=== PATIENT | female | born 1960 | race Caucasian/White ===

== ENCOUNTER 2018-03-17 11:07 | Emergency (ER) | payer MEDICARE, MEDICAID ==
[~2018-03-17] VITALS: Ht 160 cm; Wt 129.7 kg
[~2018-03-17 11:07] MED LIST: ABILIFY 5 MG TAB5 MG PO; ACTOS 45 MG45 M1 PO; ALBUTEROL2.5 MG/31 INH; ALBUTEROL2.5 MG/32; BACLOFEN20 MG PO; BACTROBAN CREAM30 G1; BENTYL20 MG PO; CLONAZEPAM 0.50.5 M1 PO; COUMADIN 3 MG TA3 M1 PO; COUMADIN 3 MG TA3 MG PO; COZAAR100 MG; CRESTOR10 MG PO; DIOVAN160 MG PO; EFFEXOR XR75 MG PO; FLAGYL500 MG PO; FLOVENT DISKUS50 MCG; FLUCONAZOLE 10100 MG PO; GLUCOPHAGE XR500 MG PO; HUMALOG100 UNIT/1 SUBQ; HYDROCHLOROTHIA25 M1 PO; HYDROCODON-ACE1 EAC8 PO; HYDROCODON-ACE1 EACH; IMODIUM A-1 MG/7.5 M; KEFLEX500 MG PO; LANTUSSOLASTAR SUBQ; LEVOTHYROXIN0.075 MG PO; LEVOTHYROXINE0.2 M1; LIPITOR20 MG; LOMOTIL TABLET1 EACH; LOPRESSOR 50 MG50 M1; LOPRESSOR25 PO; LOPRESSOR50 PO; MOBIC15 MG PO; MONISTAT 7 COM1 EAC1; MOTION RELIEF25 MG PO; MUCINEX600 MG; MUCINEX600 MG PO; NEURONTIN 300300 M1 PO; NICODERM CQ1 EAC1; NICOTINE TRANSD14 M1 TD; NYSTATIN1 EA10; ONGLYZA5 MG PO; OXYCODONE HCL 55 MG PO; OXYCODONE HCL5 MG PO; PAIN RELIEF500 MG PO; PRISTIQ100 MG PO; PROAIR HFA8.5 GM INH; RANITIDINE 150150 M1 PO; REGLAN 5 MG TAB5 MG; SINGULAIR 10 MG10 M1 PO; SKELAXIN 800 M800 M1 PO; SPIRIVA INH; SYNTHROID50 MCG PO; TYLENOL EX-STR500 M2; ZANTAC 150MG T150 MG PO; [UNRECOGNIZED DRUG - REMARK] DISSOLVE
[2018-03-17] MEDS ORDERED: BYDUREON B2 MG/0.85 INJECTION (11:36)
[2018-03-17] MEDS ORDERED: LEVEMIR SUBQ (11:37)
[2018-03-17] MEDS ORDERED: BUSPIRONE HCL10 MG PO (11:38)
[2018-03-17 11:55] LABS: ABSOLUTE BASOPHILS 0.1 thou/uL (0.0-0.2); ABSOLUTE EOSINOPHILS 0.5 thou/uL (0.0-0.7); ABSOLUTE MONOCYTES 0.7 thou/uL (0.0-1.2); ABSOLUTE NEUTROPHILS 9.5 thou/uL (1.6-8.1); BASOPHILS 1.1 %; EOSINOPHILS 3.8 %; HEMATOCRIT 51.9 % (37.0-47.0); HEMOGLOBIN 16.8 gm/dL (12.0-15.0); LYMPHOCYTES 15.7 %; MCH 29.4 pg (26.0-34.0); MCHC 32.3 g/dL (28.0-37.0); MCV 91.2 fL (80.0-100.0); MONOCYTES 5.4 %; NUCLEATED RBCS 0 /100WBC; PLATELET COUNT* 305 thou/uL (150-400); RBC 5.69 mil/uL (4.20-5.00); RDW-CV 14.7 % (10.5-14.5); WBC 12.8 thou/uL (4.0-11.0)
[2018-03-17 12:03] LABS: ANION GAP 9 mmol/L (7-16); BUN 27 mg/dL (7-18); CALCIUM 9.4 mg/dL (8.5-10.1); CHLORIDE 103 mmol/L (98-107); CO2 25 mmol/L (21-32); CREATININE 1.2 mg/dL (0.6-1.3); GLUCOSE 286 mg/dL (70-99); POTASSIUM 4.4 mmol/L (3.5-5.1); SODIUM 137 mmol/L (136-145)
[2018-03-17 12:14] LABS: ALBUMIN 3.3 g/dL (3.4-5.0); ALKALINE PHOSPHATASE 124 U/L (46-116); LIPASE 101 U/L (73-393); NT-PRO BRAIN NAT PEPTIDE 182 pg/mL (<300); SGOT 17 U/L (15-37); SGPT 30 U/L (30-65); TOTAL BILIRUBIN 0.4 mg/dL (<0.1-1.0); TOTAL PROTEIN 7.5 g/dL (6.4-8.2); TROPONIN-I LEVEL <0.06 ng/mL (<0.06)
[2018-03-17 12:21] LABS: HCO3 18.9 mmol/L (22.0-26.0); PO2 75.4 mmHg (75.0-100.0); pH 7.339 (7.340-7.450)
[2018-03-17 12:45] LABS: URINE BILIRUBIN NEGATIVE (Negative); URINE BLOOD NEGATIVE (Negative); URINE CLARITY CLEAR; URINE COLOR YELLOW; URINE GLUCOSE-RANDOM NEGATIVE (Negative); URINE KETONES NEGATIVE (Negative); URINE LEUKOCYTES-REFLEX 1+ (Negative); URINE NITRITE-REFLEX NEGATIVE (Negative); URINE PROTEIN 1+ (Negative); URINE SPECIFIC GRAVITY >= 1.030 (1.005-1.030); URINE UROBILINOGEN 0.2 E.U./dl (0.2-1.0)
[2018-03-17 12:59] LABS: MUCUS 4-6 Moderate strn/LPF (None Seen); SQUAMOUS >10 Many /LPF (0-3); URINE RBC 0-2 Rare /HPF (0-2); URINE WBC-REFLEX 6-15 Few /HPF (0-5)
[2018-03-17 13:00] LABS: CASTS None Seen /LPF (None Seen); CRYSTALS None Seen /LPF (None Seen)
[2018-03-17 14:30] VITALS: BP 148/92
--- NOTE | 2018-03-18 14:28 | EKG ---
[place] [address] ELECTROCARDIOGRAM REPORT Name: BARBARA PATRICIA Room: [facility]#: [id number] Admission: 03/17/18 Attend Phys: Discharge: 03/17/18 Date of : 56 Report #: [id number] THIS REPORT FOR: //name// [facility] ED Test Date: 2018-03-17 Test Time: 11:51:15 Pat Name: BARBARA PATRICIA Department: Room: Gender: F Cotton Expert: Michael GARCIA : 1960 Requested By: Benoit Ray Order Number: [id number] MD: Taco Yun Measurements Intervals [place] Rate: 77 P: 1 MD: 159 QRS: -2 QRSD: 85 T: 37 QT: 390 QTc: 442 Interpretive Statements nsr No further rhythm analysis attempted due to paced rhythm Probable left atrial enlargement Compared to ECG 10/03/2015 01:49:04 Sinus rhythm no longer present Left ventricular hypertrophy no longer present Electronically Signed On 03-18-2018 14:28:15 CDT by Taco Yun [email or web address] <ELECTRONICALLY SIGNED> By: Taco Yun MD, FACC 03/18/18 1428 1151 1151 Taco Yun MD, FAC /EPI
== END 2018-03-17 14:32 | disposition home or self-care (01) ==
LOC: M.ERS 11:07
PROVIDERS: Nurse Practitioner Family
DX: I95.1 Orthostatic hypotension (principal); E11.65 Type 2 diabetes mellitus with hyperglycemia; J44.9 Chronic obstructive pulmonary disease, unspecified; G47.30 Sleep apnea, unspecified; E03.9 Hypothyroidism, unspecified; F17.210 Nicotine dependence, cigarettes, uncomplicated; Z90.89 Acquired absence of other organs; Z90.49 Acquired absence of other specified parts of digestive tract; Z88.1 Allergy status to other antibiotic agents; Z88.0 Allergy status to penicillin; Z88.2 Allergy status to sulfonamides; Z88.8 Allergy status to other drugs, medicaments and biological substances; Z79.4 Long term (current) use of insulin

== ENCOUNTER → 2019-01-27 | Outpatient (CLI) | payer MEDICARE, MEDICAID ==
[~2019-01-27] MED LIST changes: +BUSPIRONE HCL10 MG PO; +BYDUREON B2 MG/0.85 INJECTION; +LEVEMIR SUBQ
== END ==
LOC: M.MRI 12-18 13:30
DX: R42 Dizziness and giddiness (principal); R26.9 Unspecified abnormalities of gait and mobility; G45.9 Transient cerebral ischemic attack, unspecified; G62.9 Polyneuropathy, unspecified; Z88.8 Allergy status to other drugs, medicaments and biological substances; Z88.1 Allergy status to other antibiotic agents; Z88.2 Allergy status to sulfonamides; Z88.0 Allergy status to penicillin

== ENCOUNTER 2019-06-06 17:37 | Inpatient (IN) | payer MEDICARE, MEDICAID ==
[~2019-06-06] VITALS: Ht 157.5 cm; Wt 107.0 kg
[~2019-06-06 17:37] MED LIST changes: -GLUCOPHAGE XR500 MG PO; +METFORMIN HCL500 MG PO
[2019-06-06 17:42] VITALS: BP 115/62
[2019-06-06 18:30] LABS: PCO2 VENOUS 26.3 mmHg (41.0-51.0); PO2 VENOUS 67.1 mmHg (35.0-45.0)
[2019-06-06 18:31] LABS: ABSOLUTE BASOPHILS 0.1 thou/uL (0.0-0.2); ABSOLUTE LYMPHOCYTES 2.2 thou/uL (0.8-5.3); ABSOLUTE MONOCYTES 0.8 thou/uL (0.0-1.2); ABSOLUTE NEUTROPHILS 6.8 thou/uL (1.6-8.1); BASOPHILS 1.3 %; EOSINOPHILS 0.3 %; HEMATOCRIT 52.3 % (37.0-47.0); HEMOGLOBIN 17.7 gm/dL (12.0-15.0); LYMPHOCYTES 22.3 %; MCH 31.3 pg (26.0-34.0); MCHC 33.9 g/dL (28.0-37.0); MCV 92.3 fL (80.0-100.0); MONOCYTES 8.1 %; MPV 8.4 fl. (7.2-11.1); NUCLEATED RBCS 0 /100WBC; PLATELET COUNT* 243 thou/uL (150-400); RBC 5.66 mil/uL (4.20-5.00)
[2019-06-06 18:54] LABS: MAGNESIUM 1.6 mg/dL (1.8-2.4); TOTAL BILIRUBIN 0.7 mg/dL (<0.1-1.0); TOTAL PROTEIN 6.2 g/dL (6.4-8.2); TROPONIN-I LEVEL 0.18 ng/mL (<0.06)
[2019-06-06 19:16] LABS: URINE BLOOD TRACE (Negative); URINE CLARITY CLEAR; URINE COLOR YELLOW; URINE GLUCOSE-RANDOM 2+ (Negative); URINE KETONES 1+ (Negative); URINE LEUKOCYTES-REFLEX NEGATIVE (Negative); URINE NITRITE-REFLEX NEGATIVE (Negative); URINE PROTEIN 2+ (Negative); URINE SPECIFIC GRAVITY 1.015 (1.005-1.030); URINE UROBILINOGEN 0.2 E.U./dl (0.2-1.0)
[2019-06-06 19:17] LABS: ICTOTEST (BILI CONFIRMATORY) Negative (Negative); URINE BILIRUBIN 1+ (Negative)
[2019-06-06 19:18] LABS: APTT 26.4 Seconds (25.0-31.3); INR 1.1; PROTIME 11.2 Seconds (9.20-11.50)
[2019-06-06 19:28] LABS: URINE RBC 0-2 Rare /HPF (0-2); URINE WBC-REFLEX 0-5 Rare /HPF (0-5)
[2019-06-06 19:29] LABS: BACTERIA-REFLEX 1-9 Few /HPF (None Seen)
[2019-06-06 19:30] LABS: AMORPHOUS URATES Few /LPF (None Seen); CRYSTALS None Seen /LPF (None Seen); HYALINE CASTS 0-3 Few /LPF (None Seen); MUCUS 0-3 Light strn/LPF (None Seen); SQUAMOUS >10 Many /LPF (0-3)
[2019-06-06 20:30] VITALS: BP 164/83
[2019-06-06 20:44] VITALS: BP 137/68
[2019-06-06 21:00] VITALS: BP 146/84
[2019-06-06 22:00] VITALS: BP 158/91
[2019-06-06 23:00] VITALS: BP 164/89
[2019-06-07] VITALS (24 sets, daily range): BP systolic 134–186; BP diastolic 69–102
--- NOTE | 2019-06-07 04:33 | NUR ---
ASUMED CARE AT 2035H,ON NC AT 2LPM AND NO CHEST PAIN NOTED.PT FORGETFUL SOMETIMES AND NO WEAKNESS OR FACIAL DROPING NOTED.ON CARDIZEM DRIP AT 10MG/HR AND CONVERTED TO NSR.TROPONIN WAS ELEVATED AND INFORM ROUGE SIFTER WITH ORDERS CARRIED OUT.HEPARIN DRIP STARTED.NO BLEEDING NOTED.CONTINUE MONITORING AND TOWARDS GOAL.
[2019-06-07 08:57] LABS: ALBUMIN 2.5 g/dL (3.4-5.0); CALCIUM 7.6 mg/dL (8.5-10.1); CREATININE 1.2 mg/dL (0.6-1.3); POTASSIUM 3.3 mmol/L (3.5-5.1); TOTAL BILIRUBIN 0.4 mg/dL (<0.1-1.0); TOTAL PROTEIN 5.2 g/dL (6.4-8.2)
[2019-06-07 10:05] LABS: CALCIUM 7.7 mg/dL (8.5-10.1); CREATININE 0.8 mg/dL (0.6-1.3); MAGNESIUM 1.5 mg/dL (1.8-2.4); POTASSIUM 3.3 mmol/L (3.5-5.1)
--- NOTE | 2019-06-07 10:14 | CON ---
[address] [address] CONSULTATION Name: BARBARA PATRICIA Room: [address] ADM IN .R.#: [id number] Admission: 06/06/19 Attend Phys: Matthew Alcocer MD Discharge: Date of : 56 Report #: [id number] THIS REPORT FOR: //name// CC: Matthew Alcocer [facility] physician/PCP Rajiv Hamilton DO DATE OF SERVICE: 06/07/2019 INDICATION: Atrial fibrillation with rapid ventricular response rate and elevated troponin. HISTORY OF PRESENT ILLNESS: The patient is a 58-year-old white female who was admitted to the hospital with confusion, abdominal discomfort, diabetes and disorientation. The patient denies any palpitations. She denies any chest pain. She is not having shortness of breath. Cardiac risk factors include diabetes and hypertension. She likely has hyperlipidemia as well. She denies any past cardiac history. FAMILY HISTORY: Fairly unremarkable. She does apparently have factor V Leiden and had been on anticoagulant. PAST MEDICAL HISTORY: 1. Hypertension. 2. Diabetes. 3. Insulin requiring diabetes type 2. 4. Chronic obstructive pulmonary disease. 5. Factor V Leiden. 6. Sleep apnea. 7. Spinal meningitis in 2001. 8. Hypothyroidism. PAST SURGICAL HISTORY: 1. Tonsillectomy. 2. Cholecystectomy. 3. Left knee surgery. 4. Carpal tunnel bilaterally on the left x 2. 5. Left elbow surgery. 6. Lap band surgery. 7. Right knee surgery. FAMILY HISTORY: Noncontributory except the patient's mother did have a blood clot which she with. SOCIAL HISTORY: The patient smokes daily two packs of cigarettes. [place] [address] CONSULTATION Name: BELEMKELTON Room: [address] IN ..#: [id number] Admission: 06/06/19 Attend Phys: Matthew Alcocer MD Discharge: Date of : 56 Report #: [id number] ALLERGIES: CLARITHROMYCIN, LISINOPRIL, PENICILLIN, PREGABALIN, SULFA, TAPE, PSEUDOEPHEDRINE. CURRENT MEDICATIONS: Bydureon BCise 2 mg injection weekly, Levemir M 45 units daily, buspirone 10 mg b.i.d., hydrochlorothiazide 25 mg a half a tablet daily, Singulair 10 mg at bedtime, clonazepam 0.5 mg b.i.d., Zantac 150 mg daily, Neurontin 300 mg 2 tablets t.i.d., Effexor XR 150 mg daily, warfarin as directed per INR, metformin 1000 mg b.i.d., Synthroid 0.075 mg daily, Abilify 5 mg at bedtime, metoprolol tartrate 50 mg b.i.d. PHYSICAL EXAMINATION: VITAL SIGNS: Blood pressure 175/85, pulse 100 and regular. GENERAL: This is a pleasant lady in no distress. Mood and affect appropriate. HEENT: Head is normocephalic, atraumatic. Extraocular muscles intact. Mucous membranes are moist. NECK: Shows no jugular venous distention. CHEST: Reveals clear lung scott. CARDIOVASCULAR: Reveals a regular rhythm with normal S1 and S2. I do not appreciate gallop or murmur. ABDOMEN: Reveals normal bowel sounds. The abdomen is soft and nontender. EXTREMITIES: Shows no edema. Peripheral pulses are 2+ and easily palpable. SKIN: Warm and dry. LABORATORY DATA: Sodium 142, potassium 3.3, chloride 108, bicarbonate 20, BUN 14, creatinine 1.2, serum glucose 242, AST 28, lipase 101, total bilirubin 0.4, calcium 7.6, phosphorus 4.2, magnesium 1.6, alkaline phosphatase 91, ALT 22, total protein 5.2, albumin 2.5, EGFR 46. Ammonia level 23. Lactic acid 1.4. Total CPK 54, CPK-MB 1.1. Troponin presently 4.20. Broad NT-proBNP 182. INR 1.1. White blood cell count 10.0, hemoglobin 17.7, platelet count 243,000. A 12-lead EKG in the Emergency Room shows atrial fibrillation with rapid ventricular response rate. Telemetry currently shows sinus rhythm. Chest x-ray was unremarkable. IMPRESSION AND RECOMMENDATIONS: 1. Elevated troponin, likely due to type 2 myocardial infarction due to atrial fibrillation with rapid ventricular response rate. We will obtain stress testing to further evaluate. Further testing will be pending the results of stress test. I would also like to obtain an echocardiogram to evaluate underlying cardiac structure and function. We will also start Eliquis 5 mg b.i.d., discontinue warfarin. 2. Atrial fibrillation with rapid ventricular response rate, now in sinus rhythm. We will resume the patient's home medications. Increasing beta laurel for blood pressure and heart rate. Obtaining 2-dimensional echocardiogram. [address] [address] CONSULTATION Name: BARBARA PATRICIA Room: [facility] IN M.R.#: [id number] Admission: 06/06/19 Attend Phys: Matthew Alcocer MD Discharge: Date of : 56 Report #: [id number] Recommend lifelong anticoagulation. 3. Hypertension. Blood pressure moderately elevated. We will make adjustments to her home medications in an effort to improve blood pressure. 4. Diabetes per primary physician. 5. Probable hyperlipidemia. We will check fasting lipid profile and treat accordingly. <ELECTRONICALLY SIGNED> By: Boyd Rodriguez MD, [facility] 06/07/19 1014 0946 1010Micaga Rodriguez MD, [facility] /nt
--- NOTE | 2019-06-07 18:26 | NUR ---
this freelance writer assumed care of pt after receiving shift report at 0700. pt progressed towards goals today. titrated off the heparin and cardizem drip. rhythm coverted to NS after a-fib rvr. pt is up to bed side commode with assist episodes of incontience. requesting soft food because cant chew well with few top teeth. daughter in room today. pt on phone with family members through day. echo scheduled for tomorrow
[2019-06-08] VITALS (10 sets, daily range): BP systolic 144–169; BP diastolic 66–87
[2019-06-08 02:05] LABS: GLYCOHEMOGLOBIN (HGB A1C) 11.6 % (4.8-5.6)
[2019-06-08 04:08] LABS: ABSOLUTE BASOPHILS 0.1 thou/uL (0.0-0.2); ABSOLUTE EOSINOPHILS 0.2 thou/uL (0.0-0.7); ABSOLUTE LYMPHOCYTES 2.8 thou/uL (0.8-5.3); ABSOLUTE MONOCYTES 0.5 thou/uL (0.0-1.2); ABSOLUTE NEUTROPHILS 4.6 thou/uL (1.6-8.1); BASOPHILS 1.4 %; EOSINOPHILS 2.1 %; HEMATOCRIT 43.8 % (37.0-47.0); LYMPHOCYTES 33.7 %; MCH 30.7 pg (26.0-34.0); MCHC 33.5 g/dL (28.0-37.0); MCV 91.8 fL (80.0-100.0); MONOCYTES 6.6 %; MPV 7.7 fl. (7.2-11.1); NUCLEATED RBCS 0 /100WBC; PLATELET COUNT* 226 thou/uL (150-400); POLYS 56.2 %; RBC 4.77 mil/uL (4.20-5.00); RDW-CV 14.1 % (10.5-14.5); WBC 8.2 thou/uL (4.0-11.0)
[2019-06-08 04:21] LABS: ALBUMIN 2.4 g/dL (3.4-5.0); CALCIUM 7.4 mg/dL (8.5-10.1); CREATININE 0.6 mg/dL (0.6-1.3); POTASSIUM 3.5 mmol/L (3.5-5.1); TOTAL BILIRUBIN 0.4 mg/dL (<0.1-1.0); TOTAL PROTEIN 5.7 g/dL (6.4-8.2)
[2019-06-08 04:25] LABS: HEMOGLOBIN 14.7 gm/dL (12.0-15.0)
[2019-06-08 04:28] LABS: PREALBUMIN 15.7 mg/dL (18.0-35.7)
[2019-06-08 05:02] LABS: CHOLESTEROL 103 mg/dL (<200); HDL CHOLESTEROL 25 mg/dL (>40); LDL CHOLESTEROL 45 mg/dL (<100); TC:HDL 4.1 Ratio (Not establshd); TRIGLYCERIDE 165 mg/dL (<150); VLDL 33 mg/dL (<40)
[2019-06-08 05:09] LABS: SERUM ASSESSMENT Clear
--- NOTE | 2019-06-08 05:12 | NUR ---
PT. PROGRESSING TOWARDS GOALS. UP AD NATALYA. ROOM AIR. MULTIPLE EPISODES OF DIARRHEA, CDIFF NEGATIVE. SINUS RHYTHM. ECHO AND STRESS TEST TO BE DONE THIS A.M. ROOM AIR. WILL CONTINUE TO MONITOR.
--- NOTE | 2019-06-08 10:51 | NUR ---
ASSUMED PT CARE 0730. PT A/O X'S 4. DENIES CHEST PAIN. PT NPO FOR STRESS TEST. SYSTOLIC BP 170'S. PT TO HAVE METOPROLOL BUT CANNOT DUE TO STRESS TEST. DR NOTIFIED. RECEIED ORDER FOR HYDROCHLORITHIAZIDE AND IF DOES NOT BRING BP DOWN RECEIVED ORDERS FOR ONE TIME HYDRLAZINE.
--- NOTE | 2019-06-08 11:12 | EKG ---
[place] [address] ELECTROCARDIOGRAM REPORT Name: PATRICIABARBARA Room: [address] ADM IN .R.#: [id number] Admission: 06/06/19 Attend Phys: Matthew Alcocer MD Discharge: Date of : 56 Report #: [id number] THIS REPORT FOR: //name// [facility] ED Test Date: 2019-06-06 Test Time: 17:48:21 Pat Name: BARBARA PATRICIA Department: Room: [facility] Gender: F Conveyor Attendant: D : 1960 Requested By: Pipe Rodriguez Order Number: [id number] MD: Rigo Nunez Measurements Intervals [place] Rate: 146 P: CA: QRS: 6 QRSD: 88 T: -33 QT: 340 QTc: 530 Interpretive Statements Atrial flutter with predominant 2:1 AV block Repol abnrm suggests ischemia, diffuse leads Prolonged QT interval Compared to ECG 03/17/2018 11:51:15 atrial flutter noted Electronically Signed On 06-08-2019 11:12:06 CDT by Rigo Nunez [email or web address] <ELECTRONICALLY SIGNED> By: Rigo Nunez MD, FAC 06/08/19 1112 1748 1748 Rigo Nunez MD, [facility] /EPI
--- NOTE | 2019-06-08 11:16 | NUR ---
Nutrition: Pt admit with altered mental status. No wt hx available, BMI >40. Pt currently NPO for stress test. BG variable: 383-138. Meds reviewed. Pt with episodes of diarrhea, c-diff negative. Nutrition risk unclear at this time; f/u on po intake, wt, etc. in 3-4 days.
--- NOTE | 2019-06-08 11:17 | NUR ---
ICU rounds and assessment: Pt tele status. Pt nurse explained pt to have stress test and MRI today. Pt lives at home alone with family support; SW tried to contact pt dtr in law Dominguez who did not answer. Pt has hx of [facility] and hx of [facility]. Pt has DME. SW/CM to continue to follow to assist with safe dc planning.
--- NOTE | 2019-06-08 14:18 | 2DMMODE ---
[place] [address] 2 D/M-MODE ECHOCARDIOGRAM Name: BARBARA PATRICIA Room: [address] IN [facility]#: [id number] Admission: 06/06/19 Attend Phys: Matthew Alcocer, Discharge: Date of : 56 Date of Service: 06/08/19 1418 Report #: [id number] THIS REPORT FOR: //name// APPROVED REPORT Study performed: 06/08/2019 10:11:18 EXAM: Comprehensive 2D, Doppler, and color-flow Echocardiogram Patient Location: In-Patient Room #: 002 Status: routine BSA: 2.05 HR: 73 bpm BP: 181/99 mmHg Rhythm: NSR Other Information Study Quality: Good Indications Atrial Fibrillation Elevated Troponin 2D Dimensions IVSd: 11.31 (7-11mm) LVOT Diam: 18.88 (18-24mm) LVDd: 41.11 mm PWd: 11.79 (7-11mm) Ascending Ao: 38.25 (22-36mm) LVDs: 22.96 (25-40mm) Aortic Root: 31.57 mm Volumes Left Atrial Volume (Systole) LA ESV Index: 38.30 mL/m2 Aortic Valve AoV Peak Kain.: 1.53 m/s AO Peak Gr.: 9.41 mmHg LVOT Max P.65 mmHg AO Mean Gr.: 4.72 mmHg LVOT Mean P.53 mmHg LVOT Max V: 1.19 m/s AO V2 VTI: 32.13 cm LVOT Mean V: 0.72 m/s CHI (VTI): 2.59 cm2 LVOT V1 VTI: 29.69 cm Mitral Valve E/A Ratio: 0.82 MV Decel. Time: 265.21 [place] [address] 2 D/M-MODE ECHOCARDIOGRAM Name: ABRBARA PATRICIA Room: [address] IN .R.#: [id number] Admission: 06/06/19 Attend Phys: Matthew Alcocer, Discharge: Date of : 56 Date of Service: 06/08/19 1418 Report #: [id number] MV E Max Kain.: 0.92 m/s MV PHT: 76.91 ms MVA (PHT): 2.86 cm2 TDI E/Lateral E': 10.22 E/Medial E': 10.22 Medial E' Kain.: 0.09 m/s Lateral E' Kain.: 0.09 m/s Pulmonary Valve PV Peak Kain.: 1.03 m/s PV Peak Gr.: 4.22 mmHg Tricuspid Valve RAP Estimate: 5.00 mmHg TR Peak Gr.: 21.68 mmHg RVSP: 26.00 mmHg PA Pressure: 26.00 mmHg Left Ventricle The left ventricle is normal size. There is normal LV segmental wall motion. Mild concentric left ventricular hypertrophy. Left ventricular systolic function is normal. The left ventricular ejection fraction is within the normal range. LVEF is 65-70%. Grade I - abnormal relaxation pattern. Right Ventricle The right ventricle is normal size. The right ventricular systolic function is normal. Atria Left atrium is mildly dilated. The right atrium size is normal. Aortic Valve Mild aortic valve sclerosis. No aortic regurgitation is present. There is no aortic valvular stenosis. Mitral Valve There is mitral annular calcification. Mild mitral regurgitation. No evidence of mitral valve stenosis. Tricuspid Valve The tricuspid valve is normal in structure. Trace tricuspid regurgitation. No pulmonary hypertension. Pulmonic Valve The pulmonary valve is normal in structure. [place] [address] 2 D/M-MODE ECHOCARDIOGRAM Name: BARBARA PATRICIA Room: [address] IN [facility]#: [id number] Admission: 06/06/19 Attend Phys: Matthew Alcocer, Discharge: Date of : 56 Date of Service: 06/08/19 1418 Report #: [id number] valvular regurgitation. Great Vessels Aortic root is mildly dilated. IVC is normal in size and collapses >50% with inspiration. Pericardium There is no pericardial effusion. <Conclusion> Mild concentric left ventricular hypertrophy. LVEF is 65-70%. Left atrium is mildly dilated. Mild aortic valve sclerosis. <ELECTRONICALLY SIGNED> By: Rigo Nunez MD, FACC 06/08/19 1418 17 141 Rigo Nunez MD, FACC /INF
--- NOTE | 2019-06-08 18:30 | NUR ---
NO CHEST PAIN THIS SHIFT. A/O X'S 4 THIS SHIFT. AFEBRILE. METORPORLOL HELD PRIOR TO STRESS TEST AND ADMININSTERED AFTER TEST. SOFT FOODS OFFERED TO PT PT REPORTS HAVING TEETH PULLED. PT TOLERATING SOFT FOODS.
--- NOTE | 2019-06-08 21:46 | NUR ---
REPORT GIVEN TO TATYANA JOYCE. PT. TO TRANSFER TO ROOM 210. PT. TRANSFERRED VIA WHEELCHAIR AT THIS TIME, ALL PERSONAL BELONGINGS SENT WITH PT.
[2019-06-09] VITALS: BP 139/85
[2019-06-09 04:00] VITALS: BP 136/58
[2019-06-09 04:43] LABS: ABSOLUTE BASOPHILS 0.1 thou/uL (0.0-0.2); ABSOLUTE EOSINOPHILS 0.2 thou/uL (0.0-0.7); ABSOLUTE LYMPHOCYTES 2.6 thou/uL (0.8-5.3); ABSOLUTE MONOCYTES 0.6 thou/uL (0.0-1.2); ABSOLUTE NEUTROPHILS 4.9 thou/uL (1.6-8.1); BASOPHILS 0.8 %; EOSINOPHILS 2.2 %; HEMATOCRIT 42.2 % (37.0-47.0); HEMOGLOBIN 14.2 gm/dL (12.0-15.0); MCH 30.9 pg (26.0-34.0); MCHC 33.6 g/dL (28.0-37.0); MONOCYTES 7.3 %; MPV 7.8 fl. (7.2-11.1); NUCLEATED RBCS 0 /100WBC; PLATELET COUNT* 226 thou/uL (150-400); POLYS 58.7 %; RBC 4.58 mil/uL (4.20-5.00); RDW-CV 13.5 % (10.5-14.5); WBC 8.4 thou/uL (4.0-11.0)
[2019-06-09 04:49] LABS: CALCIUM 7.8 mg/dL (8.5-10.1); CREATININE 0.6 mg/dL (0.6-1.3); POTASSIUM 3.1 mmol/L (3.5-5.1)
--- NOTE | 2019-06-09 05:35 | NUR ---
TRANSFERRED TO 210 FROM ICU AT 2150, SEE ASSESSMENT. VSS. PT DENIES PAIN AND SOA. AMBULATES WITH STEADY GAIT. ORIENTED TO ROOM/CALL LIGHT. SNACK PROVIDED. CALL LIGHT WITHIN REACH.
[2019-06-09 08:00] VITALS: BP 159/66
[2019-06-09 12:00] VITALS: BP 132/70
--- NOTE | 2019-06-09 12:05 | NUR ---
Spoke with Pt, goal is home at dc, no needs anticipated.
[2019-06-09] MEDS ORDERED: ELIQUIS5 MG PO (12:57)
[2019-06-09] MEDS ORDERED: LOPRESSOR100 M1 PO (12:57)
--- NOTE | 2019-06-09 13:11 | NUR ---
ASSUMED PT CARE AT 0800, AOX4, UP AD NATALYA, O2 SAT 90'S RA. TRACING SINUS ARABELLA ON TELE. PT DENIES PAIN. PT FOR DISCHARGE. CARDIOLOGY OK TO D/C. NUC MED WANTS TO DO SECOND PART OF STRESS TEST TOMORROW OUTPATIENT. VSS, AM ASSESSMENT CHARTED, MEDS GIVEN PER MAR CALL LIGHT WITHIN REACH. WILL CONTINUE TO MONITOR.
[2019-06-09 13:40] VITALS: BP 132/70
[2019-06-09 14:09] LABS: ANA INTERPRETATION Negative (())
--- NOTE | 2019-06-09 15:32 | NUR ---
DISCHARGE PLAN DISCUSSED WITH THE PT. MEDICATION PACKET GIVEN. SCRIPT CALLED TO PHARMACY. IV, TELE REMOVED. REMINDED TO FOLLOW UP WITH PCP, CARDIOLOGY. LEFT THE UNIT VIA WHEELCHAIR 1320.
--- NOTE | 2019-06-12 09:32 | EEG ---
[address] [address] EEG STUDY REPORT Name: BELEMKELTON Room: [address] IN M.R.#: [id number] Admission: 06/06/19 Attend Phys: Matthew Alcocer MD Discharge: 06/09/19 Date of : 56 Report #: [id number] THIS REPORT FOR: //name// CC: Matthew Alcocer FAM physician/PCP DATE OF SERVICE: 06/08/2019 This patient is being evaluated for altered mental status. EEG was done by placing the electrode by standard 10-20 system of electrode placement. Both referential and sequential montages were used for recording. Background activity in this patient's EEG is about 9 Hz and 30 microvolts. It is a symmetrical activity. It is intermixed with theta range slowing on both sides. Photic stimulation was unremarkable. Throughout the record, no active epileptiform activity was noticed. IMPRESSION: This patient's EEG is intermixed with theta range slowing on both sides. That is a nonspecific abnormality which can occur with encephalopathy, dementia and effect of psychotropic medication. Clinical correlation is recommended. <ELECTRONICALLY SIGNED> By: Segundo Ruiz MD 06/12/19 0932 1733 1903Pcuauhtemoc Ruiz MD /nt
--- NOTE | 2019-07-01 17:04 | CARDNUC ---
[place] [address] CARDIAC NUCLEAR IMAGING REPORT Name: PATRICIAKELTON Room: [address]#: [id number] Admission: 06/06/19 Attend Phys: Matthew Alcocer, Discharge: 06/09/19 Date of : 56 Date of Service: 07/01/19 1704 Report #: [id number] THIS REPORT FOR: //name// ADDENDUM APPROVED REPORT Study performed: 06/07/2019 09:49:00 Indication: Troponin elevation, Altered Mental Status. Patient Location: In-Patient Room #: ICU 2 Stress Tech: Sue Jimenez Stress Nurse: Nimo Austin RN Ht: 5 ft 2 in Wt: 236 lbs BSA: 2.05 m2 BMI: 43.15 Medical History Medical History: COPD, Altered Mental Status, Elevated Troponins, Hyperlipidemia, HTN, Diabetes, Hx of Blood clots. Medications: Crestor, Insulin, Eliquis, Metoprolol, ASA 81 Mg, HCTZ, Hydralazine, Home Meds include Warfarin NA 3 mg. Allergies: See EMAR, Multiple Drug Allergies. Cardiac Risk Factors: Age, Current Smoker, DM, FHX of CAD, HTN, Hyperlipidemia. Previous Cardiac Procedures: None Pretest Chest Pain Characteristics: No chest pain Exercise History: Indeterminate Physical Disabilities: Generalized weakness, 1x assist transfers. Meds Held (24 hrs): Metoprolol Pharmacologic Stress Pharmacologic stress test was performed by injecting Regadenoson 0.4 mg IV push over 10-15 seconds immediately followed by the intravenous injection of 30.2 mCi of Tc-99m Sestamibi. Time of stress injection: 12:00 Administration Route: IV Gated Stress SPECT was performed 45 minutes after stress injection. The images were gated to evaluate regional wall motion and calculate left ventricular ejection fraction. Stress Test Details Stress Test: Pharmacologic stress testing performed using 0.4 mg of regadenoson per 5 mL given IV over [address] [place] [address] CARDIAC NUCLEAR IMAGING REPORT Name: BARBARA PATRICIA ANN Room: [address]#: [id number] Admission: 06/06/19 Attend Phys: Matthew Alcocer, Discharge: 06/09/19 Date of : 56 Date of Service: 07/01/19 1704 Report #: [id number] Reason for pharmacologic stress test: Generalized weakness, 1x assist in transfers.. HR Max Heart Rate (APMHR): 160 bpm Resting HR: 62 bpm Target HR (85% APMHR): 136 bpm Max HR Achieved: 98 bpm % of APMHR: 61 Recovery HR: 92 bpm BP Resting BP: 138/75 mmHg Max BP: 163/73 mmHg Recovery BP: 169/72 mmHg ECG Resting ECG: Sinus Rhythm Stress ECG: Sinus Rhythm ST Change: None Arrhythmia: None Recovery ECG: Sinus Rhythm Recovery ST Change: None Recovery Arrhythmia: None Clinical Reason for Termination: Completed protocol Stress Symptoms: Dyspnea Exercise duration: 00 min 00 sec Exercise capacity: 1.00 METs The patient had no significant cardiac symptoms with Lexiscan infusion. Nurse Comments A 58 year old female presented from ICU for sitting Lexiscan r/t recent AMS, increased troponins, weakness and fatigue. Patient tolerated test well. Recovery unremarkable with PO caffeine, effective. Patient escorted via wheelchair by staff to Nuclear Medicine for images. Patient was stable with no complaints at that time. Stress ECG Conclusion The baseline 12-lead EKG shows sinus rhythm without significant ST or T wave abnormality. EKGs obtained during and post Lexiscan infusion show sinus rhythm with no significant ST or T wave changes when compared to baseline. There were no stress-induced [place] [address] CARDIAC NUCLEAR IMAGING REPORT Name: PATIRCIAKELTON Room: [address] IN ..#: [id number] Admission: 06/06/19 Attend Phys: Matthew Alcocer, Discharge: 06/09/19 Date of : 56 Date of Service: 07/01/19 1704 Report #: [id number] Study: uninterpretable Study Data At rest, the left ventricular ejection fraction was he%.. Post stress, the left ventricular ejection was 74%.. TID = 1.00. Perfusion There is a modest amount intensity defect in the basal to mid inferior wall. Mild bleeding in the mid to distal anterior wall is consistent with breast attenuation artifact.No other significant fixed or reversible defects are identified. Wall Motion There is mild hypokinesis of the mid inferior wall. Global LV systolic function is well-preserved. Nuclear Conclusion ECG Findings: negative for ischemia Clinical Findings: negative for ischemia Nuclear Findings: positive for ischemia Exercise Capacity: not assessed Left Ventricular Function: preserved Risk Study: moderate Perfusion images suggest ischemia of the mid to basilar wall with preserved left ventricular systolic function is a moderate risk study. <Conclusion> The baseline 12-lead EKG shows sinus rhythm without significant ST or T wave abnormality. EKGs obtained during and post Lexiscan infusion show sinus rhythm with no significant ST or T wave changes when compared to baseline. There were no stress-induced arrhythmias. <ELECTRONICALLY SIGNED> By: Boyd Rodriguez MD, FACC 07/01/194 03 03 Boyd Rodriguez MD, FACC /INF
== END 2019-06-09 15:23 | disposition home or self-care (01) | DRG 280 ==
LOC: M.ERS 17:37 → M.TBA-ER 19:05 → M.ICU 19:05 → M.2W 06-08 21:45
PROVIDERS: Emergency Medicine Emergency Medical Services; Internal Medicine Cardiovascular Disease; Psychiatry & Neurology Neurology; ADMIT Internal Medicine
DX: I21.A1 Myocardial infarction type 2 (principal); G92 Toxic encephalopathy; E87.2 Acidosis; J96.10 Chronic respiratory failure, unspecified whether with hypoxia or hypercapnia; I48.92 Unspecified atrial flutter; J44.9 Chronic obstructive pulmonary disease, unspecified; I10 Essential (primary) hypertension; E03.9 Hypothyroidism, unspecified; G47.30 Sleep apnea, unspecified; F17.210 Nicotine dependence, cigarettes, uncomplicated; I48.91 Unspecified atrial fibrillation; E11.65 Type 2 diabetes mellitus with hyperglycemia; E78.5 Hyperlipidemia, unspecified; Z88.0 Allergy status to penicillin; Z88.2 Allergy status to sulfonamides; Z88.8 Allergy status to other drugs, medicaments and biological substances; Z88.1 Allergy status to other antibiotic agents; Z91.040 Latex allergy status; Z79.4 Long term (current) use of insulin; Z79.84 Long term (current) use of oral hypoglycemic drugs; Z79.899 Other long term (current) drug therapy; Z90.49 Acquired absence of other specified parts of digestive tract

== ENCOUNTER 2019-07-16 10:05 | Observation (INO) | payer MEDICARE, MEDICAID ==
[~2019-07-16] VITALS: Ht 160 cm; Wt 117.5 kg
--- NOTE | ~2019-07-16 | H ---
[address] [address] HISTORY AND PHYSICAL Name: BARBARA PATRICIA Room: [address] Radha Child#: [id number] Admission: 07/16/19 Attend Phys: Boyd Rodriguez MD Discharge: 07/17/19 Date of : 56 Report #: [id number] THIS REPORT FOR: //name// Please refer to the History and Physical performed in the physician's office. By: 0649Medical Records Staff PATEL /PAM
[~2019-07-16 10:05] MED LIST changes: +ELIQUIS5 MG PO; +LOPRESSOR100 M1 PO
[2019-07-16 12:01] LABS: HEMATOCRIT 41.8 % (37.0-47.0); HEMOGLOBIN 14.3 gm/dL (12.0-15.0); MCH 31.6 pg (26.0-34.0); MCHC 34.1 g/dL (28.0-37.0); MCV 92.5 fL (80.0-100.0); MPV 7.8 fl. (7.2-11.1); RBC 4.52 mil/uL (4.20-5.00); RDW-CV 14.2 % (10.5-14.5); WBC 9.4 thou/uL (4.0-11.0)
[2019-07-16 12:10] LABS: ANION GAP 9 mmol/L (7-16); BUN 19 mg/dL (7-18); CALCIUM 8.5 mg/dL (8.5-10.1); CHLORIDE 108 mmol/L (98-107); CO2 24 mmol/L (21-32); CREATININE 0.9 mg/dL (0.6-1.3); GLUCOSE 322 mg/dL (70-99); POTASSIUM 4.2 mmol/L (3.5-5.1); SODIUM 141 mmol/L (136-145)
[2019-07-16 12:11] LABS: APTT 25.1 Seconds (25.0-31.3)
[2019-07-16 12:16] LABS: ALBUMIN 2.7 g/dL (3.4-5.0); ALKALINE PHOSPHATASE 97 U/L (46-116); CHOLESTEROL 98 mg/dL (<200); HDL CHOLESTEROL 29 mg/dL (>40); LDL CHOLESTEROL 41 mg/dL (<100); SERUM ASSESSMENT Clear; SGOT 31 U/L (15-37); SGPT 47 U/L (30-65); TC:HDL 3.4 Ratio (Not establshd); TOTAL BILIRUBIN 0.2 mg/dL (<0.1-1.0); TOTAL PROTEIN 6.2 g/dL (6.4-8.2); TRIGLYCERIDE 141 mg/dL (<150); VLDL 28 mg/dL (<40)
--- NOTE | 2019-07-16 14:00 | EKG ---
[place] [id number] ELECTROCARDIOGRAM REPORT Name: BARBARA PATRICIA Room: [facility]#: [id number] Admission: 07/16/19 Attend Phys: Boyd Rodriguez MD Discharge: Date of : 56 Report #: [id number] THIS REPORT FOR: //name// [facility] Test Date: 2019-07-16 Test Time: 12:05:58 Pat Name: BARBARA PATRICIA Department: Room: Gender: F Steel Analyst: : 1960 Requested By: Boyd Rodriguez Order Number: [id number] Reading MD: Boyd Rodriguez Measurements Intervals [place] Rate: 67 P: 22 [place]: 167 QRS: 15 QRSD: 90 T: 49 QT: 418 QTc: 442 Interpretive Statements Sinus rhythm Compared to ECG 06/06/2019 17:48:21 Atrial flutter no longer present 2:1 AV block no longer present Early repolarization no longer present Possible ischemia no longer present Prolonged QT interval no longer present Electronically Signed On 07-16-2019 14:00:31 ALUMINUM POOL INSTALLER by Boyd Rodriguez [email or web address] <ELECTRONICALLY SIGNED> By: Boyd Rodriguez MD, FACC 07/16/19 1400 1205 1205 Boyd Rodriguez MD, FAC /EPI
[2019-07-16 16:16] VITALS: BP 151/88
[2019-07-16 18:45] VITALS: BP 141/80
[2019-07-16 19:00] VITALS: BP 142/94
[2019-07-16 19:15] VITALS: BP 139/107
[2019-07-16 19:19] LABS: CK-MB MASS 1.8 ng/mL (<0.5-3.6)
[2019-07-16 19:24] LABS: TROPONIN-I LEVEL 1.1 ng/mL (<0.06)
[2019-07-16 19:30] VITALS: BP 139/76
--- NOTE | 2019-07-16 19:51 | NUR ---
PT RECEIVED FROM CATH AT 1840 WITH ART SHEATH IN PLACE. REMOVED THE SHEATH IN BEDSIDE BY CATHLAB RN. VSS. DISTAL PULSES PRESENT. DSG CDI. VOIDED 300 MLS IN BEDPAN. INSTRUCTED IMMOBILISATION TILL 1 AM. REPORT GIVEN TO CPS TEAM LEAD RNSTANLEY.
--- NOTE | 2019-07-16 23:40 | NUR ---
RECIEVED REPORT AND ASSUMED CARE OF PT T 193. PT PLEASANT AND COOPERATIVE, DENIED PAIN OR DISCOMFORT AT THAT TIME. PT ON COMPLETE BEDREST LAYING FLAT UNTIL 0100. RIGHT GROIN SITE INTACT. NO BLEEDING, BRUISING OR HEMATOMA. SITE COVERED WITH MYESHA AND TRANSPARENT DRESSING.
[2019-07-17] VITALS: BP 121/70
[2019-07-17 04:00] VITALS: BP 133/67
[2019-07-17 04:30] LABS: HEMATOCRIT 39.1 % (37.0-47.0); HEMOGLOBIN 12.9 gm/dL (12.0-15.0); MCH 30.7 pg (26.0-34.0); MPV 7.8 fl. (7.2-11.1); RBC 4.21 mil/uL (4.20-5.00); RDW-CV 14.3 % (10.5-14.5)
[2019-07-17 04:55] LABS: ALBUMIN 2.2 g/dL (3.4-5.0); CK-MB MASS 1.5 ng/mL (<0.5-3.6); CREATININE 0.8 mg/dL (0.6-1.3); POTASSIUM 3.9 mmol/L (3.5-5.1); TOTAL BILIRUBIN 0.3 mg/dL (<0.1-1.0); TOTAL PROTEIN 5.3 g/dL (6.4-8.2)
[2019-07-17 04:56] LABS: TROPONIN-I LEVEL 1.05 ng/mL (<0.06)
--- NOTE | 2019-07-17 06:28 | NUR ---
PT OFF BEDREST AND UP TO RESTROOM AT 0215. RIGHT GROIN SITE SOFT, NO BLEEDING BRUISING OR HEMATOMA NOTED.
[2019-07-17 07:50] VITALS: BP 134/66
[2019-07-17 11:19] VITALS: BP 134/66
[2019-07-17] MEDS ORDERED: EFFIENT10 MG PO (11:33)
[2019-07-17] MEDS ORDERED: ATORVASTATIN CA20 MG PO (11:33)
[2019-07-17 11:43] VITALS: BP 119/60
[2019-07-17 12:32] VITALS: BP 134/66
--- NOTE | 2019-07-17 13:59 | NUR ---
PT IV REMOVED INTACT AT TIME OF DISCHARGE. PT VERBALIZED UNDERSTANDING TO DC INSTRUCTIONS AT THIS TIME. PT TAKEN OUT VIA WC WITH HOSPITAL STAFF. WILL SIGN OFF
--- NOTE | 2019-07-17 15:51 | EKG ---
[place] [address] ELECTROCARDIOGRAM REPORT Name: BELEMKELTON [address] [id number] Admission: 07/16/19 Attend Phys: Boyd Rodriguez MD Discharge: 07/17/19 Date of : 56 Report #: [id number] THIS REPORT FOR: //name// [facility] Test Date: 2019-07-17 Test Time: 08:46:47 Pat Name: BARBARA PATRICIA Department: Room: [facility] Gender: F Spanish Professor: : 1960 Requested By: Boyd Rodriguez Order Number: [id number] MD: Julio Tam Measurements Intervals [place] Rate: 61 P: 21 TX: 167 QRS: 5 QRSD: 90 T: 29 QT: 439 QTc: 443 Interpretive Statements Sinus rhythm Compared to ECG 07/16/2019 12:05:58 No significant changes Electronically Signed On 07-17-2019 15:51:20 ROPE WALKER by Julio Tam [email or web address] <ELECTRONICALLY SIGNED> By: Julio Tam MD, [facility] 07/17/19 1551 5 5 Julio Tam MD, FACC /EPI
--- NOTE | 2019-07-18 10:22 | CARD ---
[address] [address] CARDIAC CATH REPORT Name: BARBARA PATRICIA Room: [address] Radha Child#: [id number] Admission: 07/16/19 Attend Phys: Boyd Rodriguez MD Discharge: 07/17/19 Date of : 56 Report #: [id number] THIS REPORT FOR: //name// APPROVED REPORT Study performed: 07/16/2019 14:08:39 Patient Details Patient Status: Out-Patient Room #: The patient is a 59 year-old female Event Personnel Boyd Rodriguez Editor School Photograph, Ayleen Srivastava Plate Filler, Kuldip Huber ELECTROSTATIC PAINTER Scrub, Mellissa Lentz RTR Monitor, Julio Tam Ice Cream Mixer Procedures Performed Art Access - R femoral artery Left Heart Cath w/or w/o Coronaries C NIKKI Place w/wo Plasty Single RCA Indication Positive stress test Risk Factors Hypercholesterolemia, Hypertension Admission/Lab Medications/Medications given during procedure Angiomax bolus and infusion Procedure Narrative The patient was brought electively to the Cardiac Catheterization Laboratory and was prepped and draped in a sterile manner. The right femoral was infiltrated with 2% Lidocaine subcutaneous anesthesia. A 6fr Ultimum Sheath sheath was inserted into the right femoral artery. Coronary angiography was performed using coronary diagnostic catheters. The right coronary system was accessed and visualized with a JR 4 6F catheter. The left coronary system was accessed and visualized with a JL 4 6F catheter. The left ventricle was accessed and visualized with a PIG 6F catheter. Left ventricular/Aortic Valve gradient assessed via catheter pullback. Left ventriculogram was performed in CABRALES projection. An aortogram of the abdominal aorta was performed. Pre-demployment femoral angiogram was performed . Hemostasis was obtained with manual pressure following sheath removal without any complications. The patient tolerated the procedure well and there were no complications associated [place] [address] CARDIAC CATH REPORT Name: BARBARA PATRICIA Room: [address] M.RCatherine#: [id number] Admission: 07/16/19 Attend Phys: Boyd Rodriguez MD Discharge: 07/17/19 Date of : 56 Report #: [id number] was no hematoma. Intraoperative Conscious Sedation Sedation start time: 1456 Case end Time: 1546 Fentanyl 25 mcg Versed 1 mg Fluoro Time: 15.8 minutes Dose: DAP 977873 cGycm2 2580 mGy Contrast Type and Amount: Visipaque 440 ml Coronary Angiography The patient's coronary anatomy is right dominant. Diagnostic Cath Left Main 0% narrowing LAD Marked tortuosity with 30% proximal narrowing Circumflex Tortuosity with 30% proximal and 50% mid vessel narrowing Right Coronary Large dominant vessel with 90% ostial stenosis 80% proximal stenosis and 50% mid vessel stenosis Left Ventriculography The left ventricle is normal in size with contractility. The left ventricular ejection fraction is estimated to be 50%. Left ventricular wall motion abnormalities are present. There is no mitral insufficiency. Mild inferobasilar hypokinesis is noted Hemodynamics The aortic pressure is 92/50 mmHg with a mean of 51 mmHg. The left ventricular pressure is 97/6 mmHg with a mean of mmHg. The left ventricular end diastolic pressure is 10 mmHg. There was no gradient across the aortic valve upon pullback. PCI Technique Lesion Anticoagulation was achieved with Angiomax. Patient was preloaded with Angiomax. Percutaneous coronary intervention was performed on the proximal right coronary artery. The lesion stenosis prior to intervention was 90% with SHEFALI 3 flow. A 6Fr JR 4.0 SH Guide Catheter was used to engage the Right ostium. A IG: ProwaterFlex 180CM Interventional Guidewire was used to cross the lesion. BALLOON DILATION A Balloon catheter Trek RX 2.5 X 12 was inserted [place] [address] CARDIAC CATH REPORT Name: BARBARA PATRICIA Room: [address] M.Sharmaine#: [id number] Admission: 07/16/19 Attend Phys: Boyd Rodriguez MD Discharge: 07/17/19 Date of : 56 Report #: [id number] 16.00atm for 12seconds. Additional Inflation: 16.00atm for 10seconds. Additional Inflation: 18.00atm for 6seconds. NC Trek RX 3.25 x 12 inserted/ inflated for 6 sec @ 18atm, 7 sec @ 22 delma, 11 sec @ 24 delma, and 6 sec @ 24 delma NC Trek RX 3.5 x 8 inserted/ inflated for 13 sec @ 22 delma, 9 sec @ 22 delma, and 8 sec @ 22 delma STENT DEPLOYMENT A drug-eluting stent Biotronik Orsiro 3.5 x 30 was inserted and inflated up to 12atm for 7seconds. Additional Inflation: 14atm for 6seconds. Final angiography reveals 10 % stenosis with SHEFALI 3 flow. COMMENTS The percutaneous coronary intervention was complex by virtue of the calcified aorto- ostial stenosis of the right coronary artery Conclusion #1 significant coronary artery disease characterized by the following: A 30% proximal LAD narrowing B 30% proximal circumflex narrowing with 50% mid vessel stenosis C large dominant right coronary artery with 90% ostial narrowing 80% proximal stenosis and 50% mid vessel stenosis #2 mild impairment in global LV function, estimated ejection fraction being 50% with mild inferobasilar hypokinesis #3 normal left-sided hemodynamics study #4 successful percutaneous coronary intervention with deployment of drug-eluting stent spanning the 90% ostial and 80% proximal right coronary stenosis with 10% residual narrowing and SHEFALI-3 flow to the distal vessel Recommendations Cardiac Risk Reduction Program Aggressive Medical Therapy Medications Administered Aspirin (any) [place] [address] CARDIAC CATH REPORT Name: BARBARA PATRICIA Room: [address] Radha Child#: [id number] Admission: 07/16/19 Attend Phys: Boyd Rodriguez MD Discharge: 07/17/19 Date of : 56 Report #: [id number] Prasugrel Diagnostic Cath Approved by: Boyd Rodriguez MD Date/Time: 07/18/2019 10:21:19 <ELECTRONICALLY SIGNED> By: Julio Tam MD, [facility] 07/18/19 1022 1022 1022Joaditya Tam MD, FAC /INF
--- NOTE | 2019-07-21 09:45 | D ---
[facility] [address] [place] [address] DISCHARGE SUMMARY Name: PATRICIAKELTON Room: [address] Radha Child#: [id number] Admission: 07/16/19 Attend Phys: Boyd Rodriguez MD Discharge: 07/17/19 Date of : 56 Report #: [id number] THIS REPORT FOR: //name// CC: Rajiv Lieberman DATE OF SERVICE: 07/17/2019 DISCHARGE DIAGNOSES: 1. Coronary artery disease. 2. Hyperlipidemia. 3. Hypertension. 4. Factor V Leiden. 5. Chronic obstructive pulmonary disease. 6. Hypothyroidism. 7. Type 2 diabetes mellitus. PROCEDURES DURING THE HOSPITALIZATION: 1. Left heart catheterization with coronary angiography and left ventriculography. 2. Percutaneous coronary intervention with drug-eluting stent placed to the ostial to proximal right coronary artery. HOSPITAL COURSE: The patient was brought to the cardiac catheterization lab after having an abnormal stress test and symptoms consistent with angina. Catheterization revealed a 90% ostial right coronary artery stenosis and an 80% proximal right coronary stenosis. The patient underwent percutaneous coronary intervention with a drug-eluting stent placed without difficulty. The patient tolerated the procedure well without complication. The patient is being discharged to home in stable condition. DISCHARGE MEDICATIONS: We will include Eliquis 5 mg p.o. b.i.d., Abilify daily, BuSpar 15 mg b.i.d., Questran 4 g daily, Benadryl 25 mg b.i.d., Bydureon 2 mg injection q. week, Neurontin 600 mg four times daily, hydrochlorothiazide 12.5 mg daily, [place] 10/325 three times a day p.r.n., Levemir 45 units nightly, Synthroid 75 mcg daily, Lopressor 50 mg two tablets p.o. b.i.d., Singulair 10 mg nightly, Ditropan XL 5 mg daily, Crestor 20 mg daily, Januvia 50 mg daily, Effexor 150 mg daily, multivitamin 1 tablet daily. DISPOSITION: The patient is to follow up with Cardiology in 1 month, and 3 months. <ELECTRONICALLY SIGNED> By: Boyd Rodriguez MD, FACC 07/21/19 0945 1138 [id number] Rodriguez MD, FACC /nt
== END 2019-07-17 14:01 | disposition home or self-care (01) ==
LOC: M.CL 10:05 → M.TBA-ER 18:00 → M.2W 18:00
PROVIDERS: ADMIT Internal Medicine Cardiovascular Disease
DX: I25.10 Atherosclerotic heart disease of native coronary artery without angina pectoris (principal); E78.5 Hyperlipidemia, unspecified; I10 Essential (primary) hypertension; E11.9 Type 2 diabetes mellitus without complications; J44.9 Chronic obstructive pulmonary disease, unspecified; E03.9 Hypothyroidism, unspecified; D68.51 Activated protein C resistance; Z79.899 Other long term (current) drug therapy

== ENCOUNTER → 2019-08-17 | Outpatient (CLI) | payer MEDICARE, MEDICAID ==
[~2019-08-17] MED LIST changes: +ATORVASTATIN CA20 MG PO; +EFFIENT10 MG PO
[2019-08-17 15:32] LABS: HEMATOCRIT 46.6 % (37.0-47.0); HEMOGLOBIN 15.8 gm/dL (12.0-15.0); MCH 31.7 pg (26.0-34.0); MCHC 33.8 g/dL (28.0-37.0); MCV 93.6 fL (80.0-100.0); MPV 7.8 fl. (7.2-11.1); RBC 4.98 mil/uL (4.20-5.00); RDW-CV 14.3 % (10.5-14.5); WBC 8.8 thou/uL (4.0-11.0)
[2019-08-17 15:54] LABS: ALBUMIN 3.1 g/dL (3.4-5.0); CALCIUM 8.9 mg/dL (8.5-10.1); TOTAL BILIRUBIN 0.4 mg/dL (<0.1-1.0); TOTAL PROTEIN 6.7 g/dL (6.4-8.2)
== END ==
LOC: M.LAB 14:57
PROVIDERS: Registered Nurse
DX: R06.02 Shortness of breath (principal); I25.10 Atherosclerotic heart disease of native coronary artery without angina pectoris; I48.0 Paroxysmal atrial fibrillation; M47.814 Spondylosis without myelopathy or radiculopathy, thoracic region; Z88.8 Allergy status to other drugs, medicaments and biological substances; Z88.2 Allergy status to sulfonamides

== ENCOUNTER 2019-09-27 19:24 | Inpatient (IN) | payer MEDICARE, MEDICAID ==
[~2019-09-27] VITALS: Ht 152.4 cm; Wt 112.0 kg
[~2019-09-27 19:24] MED LIST changes: -LEVEMIR SUBQ; +LEVEMIR100 UNIT/1 SUBQ
[2019-09-27 19:25] VITALS: BP 152/94
[2019-09-27 19:56] LABS: BE -2.9 mmol/L (-2 to +3); PCO2 30.3 mmHg (35.0-45.0); PO2 72.8 mmHg (75.0-100.0); pH 7.434 (7.340-7.450)
[2019-09-27 20:00] LABS: HEMOGLOBIN 16.5 gm/dL (12.0-15.0); MPV 8.5 fl. (7.2-11.1)
[2019-09-27 20:02] LABS: ABSOLUTE BASOPHILS 0.1 thou/uL (0.0-0.2); ABSOLUTE EOSINOPHILS 0.1 thou/uL (0.0-0.7); ABSOLUTE LYMPHOCYTES 1.9 thou/uL (0.8-5.3); ABSOLUTE MONOCYTES 0.4 thou/uL (0.0-1.2); ABSOLUTE NEUTROPHILS 5.5 thou/uL (1.6-8.1); BASOPHILS 0.7 %; EOSINOPHILS 1.3 %; HEMATOCRIT 48.1 % (37.0-47.0); MCH 31.6 pg (26.0-34.0); MCHC 34.3 g/dL (28.0-37.0); MCV 92.2 fL (80.0-100.0); MONOCYTES 4.9 %; NUCLEATED RBCS 0 /100WBC; PLATELET COUNT* 234 thou/uL (150-400); POLYS 69.1 %; RBC 5.22 mil/uL (4.20-5.00); RDW-CV 14.1 % (10.5-14.5); WBC 7.9 thou/uL (4.0-11.0)
[2019-09-27 20:08] LABS: URINE BILIRUBIN NEGATIVE (Negative); URINE BLOOD NEGATIVE (Negative); URINE CLARITY CLEAR; URINE COLOR YELLOW; URINE GLUCOSE-RANDOM 2+ (Negative); URINE KETONES TRACE (Negative); URINE LEUKOCYTES-REFLEX NEGATIVE (Negative); URINE NITRITE-REFLEX NEGATIVE (Negative); URINE PROTEIN 1+ (Negative); URINE SPECIFIC GRAVITY >= 1.030 (1.005-1.030); URINE UROBILINOGEN 0.2 E.U./dl (0.2-1.0)
[2019-09-27 20:09] LABS: CALCIUM 8.5 mg/dL (8.5-10.1); CREATININE 0.9 mg/dL (0.6-1.3); POTASSIUM 4.5 mmol/L (3.5-5.1)
[2019-09-27 20:11] LABS: APTT 24.3 Seconds (25.0-31.3); INR 1.1; PROTIME 11.6 Seconds (9.20-11.50)
[2019-09-27 20:20] LABS: ALBUMIN 2.9 g/dL (3.4-5.0); MAGNESIUM 1.6 mg/dL (1.8-2.4); TOTAL BILIRUBIN 0.3 mg/dL (<0.1-1.0); TOTAL PROTEIN 6.7 g/dL (6.4-8.2)
[2019-09-27 22:04] VITALS: BP 162/94
[2019-09-27 22:30] VITALS: BP 138/94
[2019-09-28 00:12] VITALS: BP 184/88
[2019-09-28 00:35] VITALS: BP 145/98
[2019-09-28 04:00] VITALS: BP 167/86
--- NOTE | 2019-09-28 06:06 | NUR ---
RECEIVED REPORT FROM WATER SERVICE SUPERVISORTATYANA SOTO AT 9168. PT ARRIVED TO UNIT VIA BED AT 2215. PT ORIENTED TO SELF ONLY. PT TRACING SR ON CHEMISTRY TEACHER. IV FLUIDS INFUSING. HIGH FALL PRECAUTIONS IN PLACE. PT VOICED NO CONCERNS THIS SHIFT. HOURLY ROUNDING COMPLETED. CALL LIGHT WITHIN REACH.
[2019-09-28 08:00] VITALS: BP 132/76
--- NOTE | 2019-09-28 10:41 | EKG ---
[place] [address] ELECTROCARDIOGRAM REPORT Name: BARBARA PATIRCIA Room: [address] ADM IN .R.#: [id number] Admission: 09/27/19 Attend Phys: Kuldip Palma MD Discharge: Date of : 56 Report #: [id number] THIS REPORT FOR: //name// [facility] ED Test Date: 2019-09-27 Test Time: 19:35:27 Pat Name: BARBARA PATRICIA Department: Room: [facility] Gender: F Photonics Technician: : 1960 Requested By: Dena Londono Order Number: [id number] MD: Rigo Nunez Measurements Intervals [place] Rate: 105 P: 25 GA: 165 QRS: -1 QRSD: 81 T: 37 QT: 342 QTc: 453 Interpretive Statements Sinus tachycardia Compared to ECG 07/17/2019 08:46:47 Sinus rhythm no longer present Electronically Signed On 09-28-2019 10:40:32 LOFTSMAN by Rigo Nunez [email or web address] <ELECTRONICALLY SIGNED> By: Rigo Nunez MD, [facility] 09/28/19 1040 34 Rigo Nunez MD, FACC /EPI
--- NOTE | 2019-09-28 10:44 | EKG ---
[place] [address] ELECTROCARDIOGRAM REPORT Name: PATRICIABARBARA Room: [address] ADM IN M.R.#: [id number] Admission: 09/27/19 Attend Phys: Kuldip Palma MD Discharge: Date of : 56 Report #: [id number] THIS REPORT FOR: //name// [facility] Test Date: 2019-09-28 Test Time: 07:54:21 Pat Name: BARBARA PATRICIA Department: Room: [address] Gender: F Manager Installation: : 1960 Requested By: Kuldip Palma Order Number: [id number] Sam MD: Rigo Nunez Measurements Intervals [place] Rate: 102 P: 35 NM: 180 QRS: 13 QRSD: 82 T: 55 QT: 351 QTc: 458 Interpretive Statements Sinus tachycardia Abnormal R-wave progression, early transition Electronically Signed On 09-28-2019 10:44:05 SPRINKLER DRIVER by Rigo Nunez [email or web address] <ELECTRONICALLY SIGNED> By: Rigo Nunez MD, [facility] 09/28/19 1044 0754 0754 Rigo Nunez MD, FACC /EPI
[2019-09-28 11:31] LABS: ABSOLUTE BASOPHILS 0.1 thou/uL (0.0-0.2); ABSOLUTE EOSINOPHILS 0.2 thou/uL (0.0-0.7); ABSOLUTE LYMPHOCYTES 2.5 thou/uL (0.8-5.3); ABSOLUTE MONOCYTES 0.4 thou/uL (0.0-1.2); ABSOLUTE NEUTROPHILS 5.2 thou/uL (1.6-8.1); BASOPHILS 1.2 %; EOSINOPHILS 1.8 %; HEMOGLOBIN 15.5 gm/dL (12.0-15.0); LYMPHOCYTES 29.8 %; MCHC 33.8 g/dL (28.0-37.0); MCV 91.9 fL (80.0-100.0); MONOCYTES 5.2 %; MPV 8.2 fl. (7.2-11.1); NUCLEATED RBCS 0 /100WBC; PLATELET COUNT* 234 thou/uL (150-400); RBC 5.01 mil/uL (4.20-5.00); RDW-CV 13.9 % (10.5-14.5); WBC 8.4 thou/uL (4.0-11.0)
[2019-09-28 11:43] LABS: ALBUMIN 2.7 g/dL (3.4-5.0); CALCIUM 7.6 mg/dL (8.5-10.1); CREATININE 0.8 mg/dL (0.6-1.3); POTASSIUM 3.8 mmol/L (3.5-5.1); TOTAL BILIRUBIN 0.3 mg/dL (<0.1-1.0); TOTAL PROTEIN 6.2 g/dL (6.4-8.2)
--- NOTE | 2019-09-28 14:05 | 2DMMODE ---
[place] [address] 2 D/M-MODE ECHOCARDIOGRAM Name: BARBARA PATRICIA Room: [address] IN [facility]#: [id number] Admission: 09/27/19 Attend Phys: Kuldip Palma, Discharge: Date of : 56 Date of Service: 09/28/19 1405 Report #: [id number] THIS REPORT FOR: //name// APPROVED REPORT Study performed: 09/28/2019 09:57:29 EXAM: Comprehensive 2D, Doppler, and color-flow Echocardiogram Patient Location: In-Patient Room #: 218 Status: routine BSA: 2.05 HR: 99 bpm BP: 132/76 mmHg Rhythm: NSR Other Information Study Quality: Good Indications CVA/TIA Echo Enhancing Agent Indication: Rule out Shunt Agent(s) / Amount(s) Used: Agitated Saline 10 cc 2D Dimensions IVSd: 12.25 (7-11mm) LVOT Diam: 19.55 (18-24mm) LVDd: 42.65 mm PWd: 11.12 (7-11mm) Ascending Ao: 36.27 (22-36mm) LVDs: 21.13 (25-40mm) Aortic Root: 32.73 mm Volumes Left Atrial Volume (Systole) LA ESV Index: 22.70 mL/m2 Aortic Valve AoV Peak Kain.: 1.71 m/s AO Peak Gr.: 11.63 mmHg LVOT Max P.87 mmHg AO Mean Gr.: 6.26 mmHg LVOT Mean P.70 mmHg LVOT Max V: 1.31 m/s AO V2 VTI: 28.57 cm LVOT Mean V: 0.90 m/s CHI (VTI): 2.85 cm2 LVOT V1 VTI: 27.14 [place] [address] 2 D/M-MODE ECHOCARDIOGRAM Name: BARBARA PATRICIA Room: [address] IN .R.#: [id number] Admission: 09/27/19 Attend Phys: Kuldip Palma, Discharge: Date of : 56 Date of Service: 09/28/19 1405 Report #: [id number] Mitral Valve MV Mean Gr.: 2.51 mmHg E/A Ratio: 0.63 MV Decel. Time: 259.54 ms MV E Max Kain.: 0.77 m/s MV PHT: 75.27 ms MVA (PHT): 2.92 cm2 TDI E/Lateral E': 12.83 E/Medial E': 12.83 Medial E' Kain.: 0.06 m/s Lateral E' Kain.: 0.06 m/s Pulmonary Valve PV Peak Kain.: 1.16 m/s PV Peak Gr.: 5.42 mmHg Left Ventricle The left ventricle is normal size. There is normal LV segmental wall motion. Mild concentric left ventricular hypertrophy. Left ventricular systolic function is normal. The left ventricular ejection fraction is within the normal range. LVEF is >70%. The left ventricular diastolic function is normal. Right Ventricle The right ventricle is normal size. The right ventricular systolic function is normal. Atria The left atrium size is normal. Interatrial septum is intact without evidence of ASD or PFO. The right atrium size is normal. Aortic Valve The aortic valve is normal in structure. No aortic regurgitation is present. There is no aortic valvular stenosis. Mitral Valve There is mitral annular calcification. The mitral valve is normal in structure. There is trace mitral valve regurgitation noted. No evidence of mitral valve stenosis. Tricuspid Valve The tricuspid valve is normal in structure. Trace tricuspid regurgitation. Unable to assess PA pressure. Pulmonic Valve The pulmonary valve is normal in structure. There is no pulmonic [place] [address] 2 D/M-MODE ECHOCARDIOGRAM Name: BARBARA PATRICIA Room: [address] IN M.R.#: [id number] Admission: 09/27/19 Attend Phys: Kuldip Palma, Discharge: Date of : 56 Date of Service: 09/28/19 1405 Report #: [id number] Great Vessels The aortic root is normal in size. IVC is normal in size and collapses >50% with inspiration. Pericardium There is no pericardial effusion. <Conclusion> Mild concentric left ventricular hypertrophy. Interatrial septum is intact without evidence of ASD or PFO. <ELECTRONICALLY SIGNED> By: Rigo Nunez MD, FACC 09/28/19 1405 1405 140 Rigo Nunez MD, FACC /INF
--- NOTE | 2019-09-28 15:35 | NUR ---
ST in evaluating Pt when CM went to assess, will f/u later
--- NOTE | 2019-09-28 15:36 | EKG ---
[place] [address] ELECTROCARDIOGRAM REPORT Name: BARBARA PATRICIA Room: [address] ADM IN M.R.#: [id number] Admission: 09/27/19 Attend Phys: Kuldip Palma MD Discharge: Date of : 56 Report #: [id number] THIS REPORT FOR: //name// [facility] Test Date: 2019-09-28 Test Time: 14:28:45 Pat Name: BARBARA PATRICIA Department: Room: [address] Gender: F Drencher: : 1960 Requested By: Gregor Bates Order Number: [id number] Sam MD: Rigo Nunez Measurements Intervals [place] Rate: 113 P: 12 MN: 162 QRS: 21 QRSD: 88 T: 60 QT: 350 QTc: 480 Interpretive Statements Sinus tachycardia Compared to ECG 09/28/2019 07:54:21 No significant changes Electronically Signed On 09-28-2019 15:36:04 ACCOUNT MANAGEMENT ASSISTANT by Rigo Nunez [email or web address] <ELECTRONICALLY SIGNED> By: Rigo Nunez MD, [facility] 09/28/19 1536 1428 27 Rigo Nunez MD, FACC /EPI
--- NOTE | 2019-09-28 18:12 | NUR ---
PT IS RESTING AT THIS TIME IN BED WITH CALL LIGHT IN REACH. PT OX1 VERY CONFUSED AND FORGETFUL. VSS ON RA. ST ON MONITOR, CARDIOLOGY CONSULT. PT HAD WHAT APPEARED TO BE A SHORT RUN OF SVT THIS AM. NO C/O PAIN ON ROUNDING. FALL PRECAUTIONS IN PLACE
[2019-09-28 20:00] VITALS: BP 182/90
[2019-09-28 23:56] VITALS: BP 150/83
[2019-09-29 04:00] VITALS: BP 143/68
--- NOTE | 2019-09-29 05:31 | NUR ---
ASSUMED PT CARE AT APPROX 1930. PT IS AWAKE AND ORIENTED TO SELF ONLY AND FORGETFUL. VSS ON ROOM AIR. REFRACTORY TECHNICIAN IS TRACING SR/ST. PT DENIES PAIN/DISCOMFORT. ASSESSMENT DONE AND CHARTED. CALL LIGHT WITHIN REACH. HIGH FALL PRECAUTIONS IN PLACE. HOURLY ROUNDING DONE FOR PT SAFETY.
[2019-09-29 06:14] LABS: CHOLESTEROL 138 mg/dL (<200); HDL CHOLESTEROL 28 mg/dL (>40); LDL CHOLESTEROL 73 mg/dL (<100); TC:HDL 4.9 Ratio (Not establshd); TRIGLYCERIDE 186 mg/dL (<150); VLDL 37 mg/dL (<40)
[2019-09-29 06:16] LABS: SERUM ASSESSMENT Clear
[2019-09-29 08:00] VITALS: BP 173/90
[2019-09-29 12:29] VITALS: BP 163/91
--- NOTE | 2019-09-29 13:16 | NUR ---
Pt is A&O, some confusion. Pt states that she lives at home with her son and DIL. DIL assists with ADLs and completes IADLs. Hx of [facility] . Hx of skilled at [place]. Pt has a walker, cane and wc, but states that she uses the cane the most. Pt in agreement that she will need rehab v. skilled at [place]. Rehab consult placed, if rehab is not an option, Pt wants to dc to [facility]. CM to discuss with family. Following.
[2019-09-29 17:08] VITALS: BP 166/95
--- NOTE | 2019-09-29 18:52 | NUR ---
PT HAS RESTED T/O THE DAY. PT C/O NAUSEA AND A HEADACHE AT THE BEGINNING OF SHIFT THAT WAS RESOLVED WITH TYLENOL AND ZOFRAN. PT IS ON 10 TRACH MASK. O2 SAT STABLE. PT GIVEN 4 IVPB OF MAG. REDRAW DUE AT 1999. PT TOLERATES PO PILLS CRUSHED IN PUDDING OR APPLE SAUCE. SR ON THE MONITOR. FALL PRECAUTIONS IN PLACE. CLWR
[2019-09-29 19:40] VITALS: BP 168/62
[2019-09-29 23:54] VITALS: BP 165/90
[2019-09-30 02:10] LABS: GLYCOHEMOGLOBIN (HGB A1C) 11.6 % (4.8-5.6)
[2019-09-30 04:40] VITALS: BP 164/107
--- NOTE | 2019-09-30 05:42 | NUR ---
PT CARE ASSUMED AT 1930. SAT MAINTAINED IN RA. PT IS CONFUSED. BP ELEVATED, PHYSICIAN INFORMED, ORDERS RECIEVED AND IMPLEMETED . CALL LIGHT WITHIN REACH AND BED IN LOW POSITION. DENIES PAIN AND SOB. HOURLY ROUNDING DONE FOR PT SAFETY.
[2019-09-30 06:30] VITALS: BP 150/82
[2019-09-30 07:30] LABS: AMP/METHAMP Negative (Negative); BARBITURATES Negative (Negative); BENZODIAZEPINES Negative (Negative); COCAINE Negative (Negative); METHADONE Negative (Negative); OPIATES Negative (Negative); PCP Negative (Negative); THC Negative (Negative)
[2019-09-30 07:46] VITALS: BP 147/89
--- NOTE | 2019-09-30 10:56 | NUR ---
ASSUMED CARE OF PT AT 0730. PT RESTING IN BED WAITING FOR BREAKFAST. AWAKE, ALERT AND ORIENTED X 3. PT UNAWARE OF CURRENT DATE. PT DENIES ANY PAIN OR SHORTNESS OF BREATH AT THIS TIME. TRACING SB ON THE ECONOMICS TEACHER. ON RA SAT 93%. PT UP WITH SBA TO BATHROOM. DR HIGHTOWER HERE TO SEE PT. ORDERS RECEIVED FOR TELE PSYCH FOR MEDICATION MGMT. PT GOAL FOR TODAY IS REPEAT EEG PER DR GONZALEZ, TELE PSYCH CONSULT, WORK WITH PHYSICAL AND OCCUPATIONAL THERAPY AND DISCHARGE PLANNING. AM ASSESSMENT CHARTED. MEDICATIONS PER NOV. PT REPOSITIONS SELF WITH REMINDERS. HOURLY ROUNDING OBSERVED. BED IN LOW POSITION. BED ALARM IN PLACE. FALL PRECAUTIONS IN PLACE. CALL LIGHT WITHIN REACH. WILL CONTINUE PLAN OF CARE.
--- NOTE | 2019-09-30 11:28 | NUR ---
Updated rn cardiac rehab that Pt is medically stable to dc, awaiting decision to accept. If Pt does not qualify for rehab, plan SNF.
[2019-09-30 12:00] VITALS: BP 137/75
[2019-09-30 12:38] VITALS: BP 147/89
--- NOTE | 2019-09-30 15:29 | NUR ---
Pt has opted to dc to home, does not want rehab or skilled. CM spoke with Pt's son and DIL and they are in agreement with POC to home. Updated nurse and Updated acute rehab nursing tech. Family will chicken picker and transport.
--- NOTE | 2019-09-30 16:30 | NUR ---
PT HAD TELE PSYCH CONSULT FOR MEDICATION MGMT- NO NEW ORDERS RECEIVED-PT TO CONTINUE CURRENT MEDICATION REGIMEN. PT REFUSED TO GO TO SNF OR HOME HEALTH. PT HAD REPEAT EEG. DISCHARGE ORDERS RECEIVED FOR PT TO DISCHARGE HOME. . DISCHARGE INSTRUCTIONS, CARE NOTES AND FOLLOW UP APPTS GIVEN TO PT. PT COMMUNICATES UNDERSTANDING OF DISCHARGE TEACHING. IV AND OIL FIELD TECHNICIAN REMOVED. PT DISCHARGED WITH ALL BELONGINGS AND PAPERWORK VIA WHEELCHAIR WITH NURSING STAFF TO FAMILY OWN PERSONAL VEHICLE. DISCHARGE PHOTOS TAKEN AND PLACED IN CHART UNDER PROGRESS NOTES.
--- NOTE | 2019-10-05 12:03 | CON ---
[address] [address] CONSULTATION Name: BELEMKELTON Room: [address] IN M.R.#: [id number] Admission: 09/27/19 Attend Phys: Kuldip Palma MD Discharge: 09/30/19 Date of : 56 Report #: [id number] THIS REPORT FOR: //name// CC: FAM physician/PCP Kuldip Palma DATE OF SERVICE: 09/30/2019 This patient is being evaluated for altered mental status. An EEG was done by placing the electrode by standard 10-20 system of electrode placement. Both referential and sequential montages were used for recording. Background activity in this patient's EEG is about 8 Hz and 30 microvolt. The patient became drowsy and that is associated with bilateral slowing and vertex sharp waves. Photic stimulation is unremarkable. Throughout the record, no active epileptiform activity was noticed. IMPRESSION: This patient's EEG is about the same as last time. It still demonstrates slowing on both sides without any epileptiform activity. Thank you very much for this referral. <ELECTRONICALLY SIGNED> By: Segundo Ruiz MD 10/05/19 1203 1336 [id number] Ruiz MD /nt
--- NOTE | 2019-10-05 12:03 | EEG ---
[address] [address] EEG STUDY REPORT Name: BELEMKELTON Room: [address] IN M.R.#: [id number] Admission: 09/27/19 Attend Phys: Kuldip Palma MD Discharge: 09/30/19 Date of : 56 Report #: [id number] THIS REPORT FOR: //name// CC: [facility] physician/PCP Kuldip Palma This patient is being evaluated for altered mental status. EEG was done by placing the electrode by standard 10-20 system of electrode placement. Both referential and sequential montages were used for recording. Background activity in this patient's EEG is about 7-8 Hz and 30 microvolt. It is masked by a moderate amount of artifact. The patient went to sleep that is associated with bilateral slowing and vertex sharp waves. Photic stimulation was unremarkable. IMPRESSION: This is an abnormal EEG because it is intermixed with theta range slowing on both sides. That is a nonspecific abnormality, which can occur with encephalopathy, dementia, effect of psychotropic medication, etc. Clinical correlation is recommended. <ELECTRONICALLY SIGNED> By: Segundo Ruiz MD 10/05/19 1203 1442 1456Parkole Ruiz MD /nt
--- NOTE | 2019-10-05 12:03 | CON ---
[address] [address] CONSULTATION Name: BARBARA PATRICIA Room: [address] IN M.R.#: [id number] Admission: 09/27/19 Attend Phys: Kuldip Palma MD Discharge: 09/30/19 Date of : 56 Report #: [id number] THIS REPORT FOR: //name// CC: [facility] physician/PCP Kuldip Palma DATE OF SERVICE: 09/28/2019 HISTORY OF PRESENT ILLNESS: This is a 59-year-old female patient who was seen by me for altered mental status. The patient is not able to provide any reliable history. I called the patient's son as well as the daughter, but was unable to reach either one of them. This patient had multiple admissions to the hospital and they have been for altered mental status. The diagnosis was not established in this patient, but it was thought that the patient had encephalopathy secondary to systemic infections. She thinks it is better, but on examination, she is pretty significantly confused. Review of systems is from the records. She had multiple admissions for the altered mental status. It looks like she had psychiatric problems. One of the records indicates that she has atrial fibrillation with rapid ventricular response, but I do not know whether that is true in this patient or not. A 14-point review of system was carried out the best I could. She does appear to have some bladder infection, but that appeared to be small. She does have a prior history of COPD, asthma, hypertension, diabetes, carpal tunnel, hypothyroidism. Record indicates she had a history of blood clots and bacterial meningitis. Record also indicates that she has a history of sleep apnea and she is a longstanding smoker. This is all the 14-point review of system I can get from the records. PAST MEDICAL HISTORY: Positive for sleep apnea and multiple episodes where she was admitted with altered mental status with unclear diagnosis with presumptive diagnosis of encephalopathy. FAMILY HISTORY: Unavailable. SOCIAL HISTORY: She indicates she smokes, but does not drink alcohol. PHYSICAL EXAMINATION: NEUROLOGIC: The patient when examined indicate she does not know what month it is, what hospital she is in, who the President is. The rest of the neurological examination is difficult to do because the patient is poorly cooperative. I could not look at the fundus, but looks like she moves both sides. She does not appear to have any meningeal sign. I could not look at the patient's fundus. There is no carotid bruit. She is morbidly obese. She does not have any thyroid mass or any carotid bruit. CARDIAC: [place] [address] CONSULTATION Name: BARBARA PATRICIA ANN Room: [address] IN ..#: [id number] Admission: 09/27/19 Attend Phys: Kuldip Palma MD Discharge: 09/30/19 Date of : 56 Report #: [id number] LUNGS: No respiratory difficulty was noticed. VITAL SIGNS: Blood pressure is 132/76, respiratory rate is 18, pulse is 101, temperature is 98. LABORATORY DATA: Indicated normal white count. She does have a few wbc's in the urine. IMPRESSION: It is not clear what the etiology of the patient's recurrent altered mental status is. I think she needs some further workup. We will see if we can get an MRI and an EEG done. One of the record indicated she used to be on anticoagulation, but does not look like she is on. Multiple things were ____ in this patient. I discussed the option with the patient and she wants to follow this plan and I need to talk to the patient's son and daughter to get some more history and await the MRI and EEG to have further evaluation. More than 50 minutes of time was spent taking care of this patient today and majority was done counseling and coordinating in her care. <ELECTRONICALLY SIGNED> By: Segundo Ruiz MD 10/05/19 1203 [id number] [id number] Ruiz MD /nt
== END 2019-09-30 16:30 | disposition home or self-care (01) | DRG 637 ==
LOC: M.ERS 19:24 → M.TBA-ER 21:13 → M.2W 21:13
PROVIDERS: Internal Medicine; Personal Emergency Response Attendant; ADMIT Internal Medicine
DX: E11.65 Type 2 diabetes mellitus with hyperglycemia (principal); G93.41 Metabolic encephalopathy; Z68.42 Body mass index [BMI] 45.0-49.9, adult; N39.0 Urinary tract infection, site not specified; I47.1 Supraventricular tachycardia; E66.01 Morbid (severe) obesity due to excess calories; J44.9 Chronic obstructive pulmonary disease, unspecified; J45.909 Unspecified asthma, uncomplicated; F03.90 Unspecified dementia, unspecified severity, without behavioral disturbance, psychotic disturbance, mood disturbance, and anxiety; I10 Essential (primary) hypertension; F41.9 Anxiety disorder, unspecified; M19.90 Unspecified osteoarthritis, unspecified site; F32.9 Major depressive disorder, single episode, unspecified; E03.9 Hypothyroidism, unspecified; G47.30 Sleep apnea, unspecified; F17.200 Nicotine dependence, unspecified, uncomplicated; Z90.49 Acquired absence of other specified parts of digestive tract; Z79.84 Long term (current) use of oral hypoglycemic drugs; Z87.440 Personal history of urinary (tract) infections; Z90.89 Acquired absence of other organs; Z79.899 Other long term (current) drug therapy; Z88.1 Allergy status to other antibiotic agents; Z88.0 Allergy status to penicillin; Z88.2 Allergy status to sulfonamides; Z91.048 Other nonmedicinal substance allergy status

== ENCOUNTER 2019-11-09 19:29 | Inpatient (IN) | payer MEDICARE, MEDICAID ==
[~2019-11-09] VITALS: Ht 160 cm; Wt 112.0 kg
[2019-11-09 19:42] VITALS: BP 146/93
[2019-11-09] MEDS ORDERED: ROSUVASTATIN CA20 MG PO (19:50)
[2019-11-09] MEDS ORDERED: CHANTIX1 MG PO (19:50)
[2019-11-09] MEDS ORDERED: JANUVIA 50 MG T50 M1 PO (19:51)
[2019-11-09] MEDS ORDERED: OXYBUTYNIN 5 MG5 M2 PO (19:51)
[2019-11-09] MEDS ORDERED: NORCO 10-325 T1 EACH PO (19:52)
[2019-11-09] MEDS ORDERED: CENTRUM COMPLE1 EACH PO (19:52)
[2019-11-09] MEDS ORDERED: BENADRYL25 MG PO (19:53)
[2019-11-09 20:46] LABS: ABSOLUTE BASOPHILS 0.1 thou/uL (0.0-0.2); ABSOLUTE EOSINOPHILS 0.2 thou/uL (0.0-0.7); ABSOLUTE LYMPHOCYTES 2.5 thou/uL (0.8-5.3); ABSOLUTE MONOCYTES 0.5 thou/uL (0.0-1.2); ABSOLUTE NEUTROPHILS 5.8 thou/uL (1.6-8.1); BASOPHILS 1.4 %; EOSINOPHILS 1.7 %; HEMATOCRIT 45.8 % (37.0-47.0); HEMOGLOBIN 15.6 gm/dL (12.0-15.0); LYMPHOCYTES 27.8 %; MCH 31.3 pg (26.0-34.0); MCHC 34.1 g/dL (28.0-37.0); MCV 91.9 fL (80.0-100.0); MONOCYTES 5.4 %; MPV 8.5 fl. (7.2-11.1); NUCLEATED RBCS 0 /100WBC; PLATELET COUNT* 228 thou/uL (150-400); POLYS 63.7 %; RBC 4.98 mil/uL (4.20-5.00); RDW-CV 14.4 % (10.5-14.5); WBC 9.1 thou/uL (4.0-11.0)
[2019-11-09 20:55] LABS: CALCIUM 8.3 mg/dL (8.5-10.1); CREATININE 0.9 mg/dL (0.6-1.3); POTASSIUM 4.4 mmol/L (3.5-5.1)
[2019-11-09 21:06] LABS: ALBUMIN 2.9 g/dL (3.4-5.0); TOTAL BILIRUBIN 0.3 mg/dL (<0.1-1.0); TOTAL PROTEIN 6.4 g/dL (6.4-8.2)
[2019-11-09 22:09] LABS: URINE BILIRUBIN NEGATIVE (Negative); URINE BLOOD NEGATIVE (Negative); URINE CLARITY CLEAR; URINE COLOR YELLOW; URINE GLUCOSE-RANDOM 3+ (Negative); URINE KETONES NEGATIVE (Negative); URINE LEUKOCYTES-REFLEX 1+ (Negative); URINE NITRITE-REFLEX NEGATIVE (Negative); URINE PROTEIN TRACE (Negative); URINE SPECIFIC GRAVITY 1.015 (1.005-1.030); URINE UROBILINOGEN 0.2 E.U./dl (0.2-1.0)
[2019-11-09 22:18] LABS: AMP/METHAMP Negative (Negative); BARBITURATES Negative (Negative); BENZODIAZEPINES Negative (Negative); COCAINE Negative (Negative); METHADONE Negative (Negative); OPIATES Negative (Negative); PCP Negative (Negative); THC Negative (Negative)
[2019-11-09 22:56] LABS: CASTS None Seen /LPF (None Seen); SQUAMOUS >10 Many /LPF (0-3)
[2019-11-09 22:57] LABS: CRYSTALS None Seen /LPF (None Seen); URINE RBC 0-2 Rare /HPF (0-2)
[2019-11-10] VITALS (8 sets, daily range): BP systolic 128–173; BP diastolic 70–108
--- NOTE | 2019-11-10 11:08 | EKG ---
[place] [address] ELECTROCARDIOGRAM REPORT Name: PATRICIABARBARA Room: [address] ADM IN [facility].#: [id number] Admission: 11/09/19 Attend Phys: Kuldip Palma, Discharge: Date of : 56 Date of Service: 11/09/192009 Report #: [id number] THIS REPORT FOR: //name// [facility] ED Test Date: 2019-11-09 Test Time: 20:10:15 Pat Name: BARBARA PATRICIA Department: Room: [facility] Gender: F I[place] Architect: NADINE : 1960 Requested By: Nelly Kc Order Number: [id number] MD: Rigo Nunez Measurements Intervals [place] Rate: 70 P: 3 UT: 176 QRS: 9 QRSD: 88 T: 38 QT: 418 QTc: 452 Interpretive Statements Sinus rhythm Baseline wander in lead(s) V1 Compared to ECG 09/28/2019 14:28:45 Sinus tachycardia no longer present Electronically Signed On 11-10-2019 11:07:15 [employer] by Rigo Nunez [email or web address] <ELECTRONICALLY SIGNED> By: Rigo Nunez MD, FACC 11/10/19 1107 09 09 Rigo Nunez MD, [facility] /EPI
[2019-11-11] VITALS: BP 140/77
[2019-11-11 02:09] LABS: GLYCOHEMOGLOBIN (HGB A1C) 11.6 % (4.8-5.6)
[2019-11-11 04:00] VITALS: BP 115/75
[2019-11-11 05:18] LABS: HEMATOCRIT 41.2 % (37.0-47.0); HEMOGLOBIN 14.1 gm/dL (12.0-15.0); MCH 31.4 pg (26.0-34.0); MCHC 34.3 g/dL (28.0-37.0); MCV 91.7 fL (80.0-100.0); RBC 4.5 mil/uL (4.20-5.00); RDW-CV 14.2 % (10.5-14.5); WBC 7.1 thou/uL (4.0-11.0)
[2019-11-11 05:38] LABS: ALBUMIN 2.4 g/dL (3.4-5.0); CALCIUM 7.6 mg/dL (8.5-10.1); CREATININE 0.6 mg/dL (0.6-1.3); MAGNESIUM 1.9 mg/dL (1.8-2.4); POTASSIUM 3.8 mmol/L (3.5-5.1); TOTAL BILIRUBIN 0.2 mg/dL (<0.1-1.0); TOTAL PROTEIN 5.5 g/dL (6.4-8.2)
[2019-11-11 08:00] VITALS: BP 150/79
[2019-11-11] MEDS ORDERED: CEFDINIR300 MG PO (10:49)
[2019-11-11 11:00] VITALS: BP 150/79
[2019-11-11 11:51] VITALS: BP 151/85
[2019-11-11 12:18] VITALS: BP 150/79
== END 2019-11-11 14:25 | disposition home health service (06) | DRG 690 ==
LOC: M.ERS 19:29 → M.2W 23:34 → M.TBA-ER 23:34 → M.2W 11-10 00:30
PROVIDERS: Internal Medicine; Physician Assistant; ADMIT Internal Medicine
PROC: 5A09357 Assistance with Respiratory Ventilation, Less than 24 Consecutive Hours, Continuous Positive Airway Pressure (ICD-10-PCS; principal; 2019-11-10)
DX: N39.0 Urinary tract infection, site not specified (principal); I95.1 Orthostatic hypotension; J44.9 Chronic obstructive pulmonary disease, unspecified; I10 Essential (primary) hypertension; E11.65 Type 2 diabetes mellitus with hyperglycemia; G47.33 Obstructive sleep apnea (adult) (pediatric); F17.210 Nicotine dependence, cigarettes, uncomplicated; S06.0X0A Concussion without loss of consciousness, initial encounter; W18.39XA Other fall on same level, initial encounter; G56.02 Carpal tunnel syndrome, left upper limb; E03.9 Hypothyroidism, unspecified; Z88.1 Allergy status to other antibiotic agents; Z88.0 Allergy status to penicillin; Z88.2 Allergy status to sulfonamides; Z88.8 Allergy status to other drugs, medicaments and biological substances; Z91.048 Other nonmedicinal substance allergy status; Z79.01 Long term (current) use of anticoagulants; Z79.899 Other long term (current) drug therapy; Z90.49 Acquired absence of other specified parts of digestive tract; Z86.718 Personal history of other venous thrombosis and embolism; Z86.711 Personal history of pulmonary embolism; Y93.89 Activity, other specified; Y92.89 Other specified places as the place of occurrence of the external cause; Y99.8 Other external cause status

== ENCOUNTER 2020-02-26 14:59 | Emergency (ER) | payer MEDICARE, MEDICAID ==
[~2020-02-26] VITALS: Ht 157.5 cm; Wt 104.3 kg
[~2020-02-26 14:59] MED LIST changes: +BENADRYL25 MG PO; +CEFDINIR300 MG PO; +CENTRUM COMPLE1 EACH PO; +CHANTIX1 MG PO; +JANUVIA 50 MG T50 M1 PO; +NORCO 10-325 T1 EACH PO; +OXYBUTYNIN 5 MG5 M2 PO; +ROSUVASTATIN CA20 MG PO
[2020-02-26] MEDS ORDERED: HYDROCHLOROTHIA25 M2 PO (15:46)
[2020-02-26] MEDS ORDERED: ALLERGY RELIEF25 MG PO (15:47)
[2020-02-26 16:10] LABS: URINE BILIRUBIN NEGATIVE (Negative); URINE BLOOD NEGATIVE (Negative); URINE CLARITY CLEAR; URINE COLOR YELLOW; URINE GLUCOSE-RANDOM TRACE (Negative); URINE KETONES 1+ (Negative); URINE LEUKOCYTES-REFLEX NEGATIVE (Negative); URINE NITRITE-REFLEX NEGATIVE (Negative); URINE PROTEIN TRACE (Negative); URINE SPECIFIC GRAVITY 1.015 (1.005-1.030); URINE UROBILINOGEN 0.2 E.U./dl (0.2-1.0)
[2020-02-26 16:13] LABS: ABSOLUTE BASOPHILS 0.1 thou/uL (0.0-0.2); ABSOLUTE EOSINOPHILS 0.1 thou/uL (0.0-0.7); ABSOLUTE LYMPHOCYTES 1.4 thou/uL (0.8-5.3); ABSOLUTE MONOCYTES 0.4 thou/uL (0.0-1.2); ABSOLUTE NEUTROPHILS 8.1 thou/uL (1.6-8.1); BASOPHILS 1.1 %; EOSINOPHILS 0.6 %; HEMATOCRIT 50.2 % (37.0-47.0); HEMOGLOBIN 16.8 gm/dL (12.0-15.0); LYMPHOCYTES 13.6 %; MCH 31.8 pg (26.0-34.0); MCHC 33.4 g/dL (28.0-37.0); MCV 95.1 fL (80.0-100.0); MONOCYTES 4.2 %; MPV 8.5 fl. (7.2-11.1); NUCLEATED RBCS 0 /100WBC; PLATELET COUNT* 286 thou/uL (150-400); POLYS 80.5 %; RBC 5.28 mil/uL (4.20-5.00); RDW-CV 13.7 % (10.5-14.5); WBC 10.1 thou/uL (4.0-11.0)
[2020-02-26 16:17] LABS: BE -4.2 mmol/L (-2 to +3); PCO2 VENOUS 47.8 mmHg (41.0-51.0); PO2 VENOUS 28.2 mmHg (35.0-45.0)
[2020-02-26 16:25] LABS: APTT 24.9 Seconds (25.0-31.3); INR 1.1; PROTIME 11.4 Seconds (9.20-11.50)
[2020-02-26 16:26] LABS: CALCIUM 8.5 mg/dL (8.5-10.1); CREATININE 1.3 mg/dL (0.6-1.3); POTASSIUM 4.3 mmol/L (3.5-5.1)
[2020-02-26 16:34] LABS: ALBUMIN 3.1 g/dL (3.4-5.0); TOTAL BILIRUBIN 0.4 mg/dL (<0.1-1.0); TOTAL PROTEIN 6.8 g/dL (6.4-8.2)
[2020-02-26 18:46] VITALS: BP 140/86
--- NOTE | 2020-02-27 12:55 | EKG ---
[place] [address] ELECTROCARDIOGRAM REPORT Name: BARBARA PATRICIA Room: [facility]#: [id number] Admission: 02/26/20 Attend Phys: Discharge: 02/26/20 Date of : 56 Date of Service: 02/26/20 1612 Report #: [id number] THIS REPORT FOR: //name// [facility] ED Test Date: 2020-02-26 Test Time: 16:12:53 Pat Name: BARBARA PATRICIA Department: Room: Gender: F [place] Administrator: : 1960 Requested By: Tenzin Duran Order Number: [id number] MD: Rigo Nunez Measurements Intervals [place] Rate: 74 P: 10 [place]: 165 QRS: 17 QRSD: 83 T: 38 QT: 408 QTc: 453 Interpretive Statements Sinus rhythm Compared to ECG 11/09/2019 20:10:15 No significant changes Electronically Signed On 02-27-2020 12:54:22 CDT by Rigo Nunez [email or web address] <ELECTRONICALLY SIGNED> By: Rigo Nunez MD, [facility] 02/27/20 1254 1612 161 Rigo Nunez MD, FAC /EPI
== END 2020-02-26 18:47 | disposition home or self-care (01) ==
LOC: M.ERS 14:59
PROVIDERS: Family Medicine
DX: E11.65 Type 2 diabetes mellitus with hyperglycemia (principal); R41.82 Altered mental status, unspecified; I10 Essential (primary) hypertension; E11.9 Type 2 diabetes mellitus without complications; E03.9 Hypothyroidism, unspecified; J44.9 Chronic obstructive pulmonary disease, unspecified; J45.909 Unspecified asthma, uncomplicated; G47.30 Sleep apnea, unspecified; F17.210 Nicotine dependence, cigarettes, uncomplicated; Z90.49 Acquired absence of other specified parts of digestive tract; Z91.048 Other nonmedicinal substance allergy status; Z88.0 Allergy status to penicillin; Z88.1 Allergy status to other antibiotic agents; Z88.2 Allergy status to sulfonamides; Z88.8 Allergy status to other drugs, medicaments and biological substances

== ENCOUNTER → 2020-04-22 | Outpatient (CLI) | payer MEDICARE, MEDICAID ==
[~2020-04-22] MED LIST changes: +ALLERGY RELIEF25 MG PO; +HYDROCHLOROTHIA25 M2 PO
== END ==
LOC: M.LAB 16:34
PROVIDERS: ATTEND Anesthesiology
DX: Z01.812 Encounter for preprocedural laboratory examination (principal); Z11.59 Encounter for screening for other viral diseases; E87.6 Hypokalemia; Z80.0 Family history of malignant neoplasm of digestive organs